=== PATIENT | male | born 1950 | race Caucasian/White ===

== ENCOUNTER 2019-08-22 13:39 | Inpatient (IN) | payer MEDICARE, SELFPAY ==
[2019-08-22] VITALS (9 sets, daily range): BP systolic 102–131; BP diastolic 68–82; PULSE 62–79; RESP 16–19; TEMP 36.6; O2SAT 96–100; BMI 26.0; BMI 24.8
--- NOTE | 2019-08-22 14:03 | RAD_ITS ---
STUDY: X-RAY CHEST REASON FOR EXAM: Male, 69 years old. SOB, HX STEMI, CVA TECHNIQUE: Single AP portable view of the chest. COMPARISON: None. FINDINGS: EKG leads project over the chest. The lungs are clear and expanded. There is no demonstrated pleural abnormality. Normal size heart. Normal mediastinum and maría elena. Normal visualized pulmonary arteries. Normal visualized aortic arch and descending thoracic aorta. Normal visualized thoracic spine. Normal visualized ribs, clavicles, and shoulders. There is no demonstrated abnormality of the visualized soft tissue structures of the upper abdomen. RAD/Chest 1 View (Portable) IMPRESSION: Nonacute portable x-ray examination of the chest. Electronically Signed: Storm Russell MD (Brooks) at 14:45 EST , Service support ,
--- NOTE | 2019-08-22 14:03 | EKG12_ITS ---
Test Reason : SOB Blood Pressure : / mmHG Vent. Rate : 067 BPM Atrial Rate : 067 BPM P-R Int : 178 ms QRS Dur : 160 ms QT Int : 500 ms P-R-T Axes : 069 043 -46 degrees QTc Int : 528 ms Normal sinus rhythm Right bundle branch block T wave abnormality, consider lateral ischemia Abnormal ECG Confirmed by DANIELLE WEAVER, SAMIR ([id number]), editorial director ANGELIQUE FARIAS ([id number]) on 08/25/2019 8:48:36 AM Referred By: Dora Mena Confirmed By:SAMIR SANTOS MD
--- NOTE | 2019-08-22 14:04 | ED.DCSUM_ITS ---
History of Present Illness Chief Complaint: Shortness of Breath Informant: Patient Onset: Weeks Narrative: Patient presents with family secondary to this of breath. Patient was just discharged from the hospital in [place] yesterday. While there patient had severe congestive heart failure. He went into A. fib RVR. He reportedly threw a clot and have a stroke. He was discharged yesterday and states he felt pretty decent when he went home. Since returning home he has had increased shortness of breath. Family states he is supposed to follow-up with Dr. Bedolla here locally so they came to [place]. Family states he did receive a lot of Lasix while in the hospital, but they had problems with low blood pressure. Family states that in spite of patient having severe CHF and shortness of breath his oxygen saturations remained in the high 90s. He was on nasal cannula essentially for comfort. - Past Medical History (1) Atrial fibrillation Status: Chronic (2) CHF (congestive heart failure) Status: Chronic (3) Hypertension Status: Chronic (4) High cholesterol Status: Chronic (5) Myocardial infarction Status: Chronic (6) Diabetes Status: Chronic (7) CVA (cerebral vascular accident) Status: Chronic Past Medical History - Allergies and Home Meds Allergies/Adverse Reactions: Allergies Sulfa (Sulfonamide Antibiotics) Allergy (Verified 08/22/19 13:41) Other Prior records reviewed: Yes - Reviewed patient's discharge notes from [place]. Lives: With Family Smoking Status: Former smoker Review of Systems General: Denies: Chills, Fever Eyes: Denies: Visual changes - bilaterally ENT: Denies: Bilateral ear pain Cardiovascular: Denies: Chest pain Respiratory: Reports: Dyspnea. Denies: Cough Gastrointestinal: Denies: Abdominal pain, Nausea, Vomiting, Diarrhea Genitourinary: Denies: Dysuria Musculoskeletal: Denies: Swelling Skin: Denies: Rash Neurological: Denies: Headache Hematologic: Denies: Easy bruising Allergy: Denies: Uticaria Physical Exam Vital Signs/Narrative: Vital Signs Temp Pulse Resp BP Pulse Ox 08/22/19 13:40 97.9 F 68 18 131/69 H 97 Inital Vital Signs reviewed: Yes General: Well nourished, Well developed Head: Normocephalic ENT: Moist mucous membranes Neck: Supple Cardiovascular: Regular rate, Regular rhythm Respiratory: No distress, CTA bilaterally Abdomen: Soft, Nontender, Nondistended Extremities: Nontender, No edema Skin: Normal color Neurological: Alert, Oriented x3 Psychological: Normal affect Diagnostic/Tx/Re-eval Impressions Chest X-Ray 08/22/19 14:03 IMPRESSION: Nonacute portable x-ray examination of the chest. Electronically Signed: Storm Russell MD (Brooks) at 14:45 EST , Service support , 08/22/19 14:03 Chest 1 View (Portable) [RAD] Stat Laboratory Results 08/22/19 08/22/19 08/22/19 14:10 14:10 14:10 WBC 6.1 RBC 5.03 Hgb 14.0 Hct 44.1 MCV 87.7 MCH 27.8 MCHC 31.7 L RDW Std Deviation 42.3 RDW Coeff of Helene 13.2 Plt Count 259 MPV 10.0 Immature Gran % (Auto) 0.700 Neut % (Auto) 64.2 Lymph % (Auto) 15.9 L Powell % (Auto) 9.7 Eos % (Auto) 9.0 H Baso % (Auto) 0.5 Absolute Neuts (auto) 3.9 Absolute Lymphs (auto) 0.97 Nucleated RBC % 0 Sodium 139 Potassium 4.3 Chloride 105 Carbon Dioxide 31.0 Anion Gap 3 L BUN 44 H Creatinine 1.85 H Estim Creat Clear Calc 40.70 Est GFR (MDRD) Af Amer 47 L Est GFR (MDRD) Non-Af 39 L BUN/Creatinine Ratio 23.8 H Glucose 283 H Calcium 8.4 L Troponin I < 0.015 B-Natriuretic Peptide 851.9 H - EKG Initial EKG Interpretation: Sinus Rhythm - Sinus rhythm with a right bundle branch block. Lateral T flattening and inversions. - Medical Decision Making Patient was placed on nasal cannula here which helps his dyspneic symptoms. He was not hypoxic. Patient's chest x-ray is unremarkable, however his BNP is still significantly elevated. I was able to review the discharge summary from the physician at [facility]. It appears the patient's EF is only 20% and he was taken off of his Lasix secondary to hypotension. We will give him a small dose of Lasix at this time and speak with hospitalist regarding admission. Patient's family is very uncomfortable with him at home and his fragile state. They are concerned he is not going to make it to his appointment on the . ED Disposition - Plan for ED Patient: Disposition: Acute Care Hospital [facility] Diagnosis: CHF (congestive heart failure)
[2019-08-22 14:16] LABS: Absolute Lymphocyte Count 0.97 X10^3/uL (0.83-4.51); Absolute Neutrophil Count 3.9 X10^3/uL (2.0-7.7); Basophil# 0.03 X10^3/uL; Basophil% 0.5 % (0-1); Eosinophil# 0.55 X10^3/uL; Hematocrit 44.1 % (40-54); Lymphocyte # 0.97 X10^3/ul (4.0); Lymphocyte % 15.9 % (19-41); Mean Corp Hgb Conc 31.7 g/dL (32-36); Mean Corpuscular Hgb 27.8 pg (27.0-32.0); Mean Corpuscular Volume 87.7 fL (80-94); Monocyte# 0.59 X10^3/uL; Monocyte% 9.7 % (0-10); NRBC Flagged by Analyzer 0 % (0-5); Neutrophil # 3.92 X10^3/uL (2.7-7.7); Neutrophil % 64.2 % (47-70); Platelet Count 259 K/mm3 (150-450); RBC Distribution Width CV 13.2 % (11.6-14.6); RBC Distribution Width SD 42.3 fl (35.1-43.9); Red Blood Count 5.03 M/mm3 (4.6-6.2); White Blood Count 6.1 K/mm3 (4.4-11.0)
[2019-08-22 14:34] LABS: Anion Gap 3 (5-15); BUN 44 mg/dL (7-18); BUN/Creat Ratio 23.8 RATIO (10-20); Calcium,Total 8.4 mg/dL (8.5-10.1); Chloride 105 mmol/L (98-107); Creatinine, Serum 1.85 mg/dL (0.70-1.30); EST Glomerular Filtration Rate 39 mL/min (>60); Est Glom Filt Rate - Afr Amer 47 mL/min (>60); Glucose 283 mg/dL (74-106); Potassium 4.3 mmol/L (3.5-5.1); Sodium Level 139 mmol/L (136-145)
[2019-08-22 14:44] LABS: BNP,B-Type NATRIURETIC PEPTIDE 851.9 pg/mL (0-100)
--- NOTE | 2019-08-22 16:40 | HP.PCM_ITS ---
Problem List (1) CHF (congestive heart failure) Status: Chronic (2) Atrial fibrillation Status: Chronic (3) CVA (cerebral vascular accident) Status: Chronic (4) Diabetes Status: Chronic (5) High cholesterol Status: Chronic (6) Hypertension Status: Chronic (7) Myocardial infarction Status: Chronic History of Present Illness Date of Admission: 08/22/19 Chief Complaint: Increased shortness of breath. The patient is a 69 year old M who presents emergency room due to increase shortness of breath. Patient was discharged yesterday from [facility]. Patient reports he has had increased shortness of breath for the past few months and was treated for URI without improvement. He was then admitted to [facility] and found to have new dx CHF with EF 20%, A.Fib with RVR complicated by acute left parietal stroke. Patient was discharged in stable condition yesterday however continues to have shortness of breath. He states he is requiring 3 pillows to remain comfortable while sleeping. Patient has upcoming appointment to establish with Dr. Bedolla 09/01/2019. His other past medical history includes type 2 diabetes mellitus, extensive tobacco use history and hypertension. Past Medical History Past Medical History (Chronic Problems): Chronic Problems Atrial fibrillation (Chronic) CHF (congestive heart failure) (Chronic) Hypertension (Chronic) High cholesterol (Chronic) Myocardial infarction (Chronic) Diabetes (Chronic) CVA (cerebral vascular accident) (Chronic) Allergies Sulfa (Sulfonamide Antibiotics) Allergy (Verified 08/22/19 13:41) Other Home Medications: Ambulatory Orders Medication Instructions Recorded Amiodarone HCl [Cordarone] 200 mg PO BID 08/22/19 Apixaban [Eliquis] 5 mg PO BID 08/22/19 Atorvastatin Calcium 40 mg PO QHS 08/22/19 Carvedilol 6.25 mg PO BID 08/22/19 Losartan Potassium [Cozaar] 25 mg PO DAILY 08/22/19 Metformin HCl 500 mg PO BID 08/22/19 Surgical History: - - Right inguinal repair x2, tonsillectomy. Lives: With Family Smoking Status: Former smoker - 1 pack/day smoker x54 years. Tobacco Use: Cigarettes Alcohol: None Drugs: None - *Family History Maternal History Items: - - related to viral endocarditis. Paternal History Items: - - Cancer- brain, bone, lungs. Review of Systems Constitutional: Denies: Chills, Fever, Weight Change HEENT: Denies: Head Aches, Sinus Congestion, Sinus Drainage Cardiovascular: Denies: Chest Pain, Edema, Light Headedness, Palpitations, Syncope Respiratory: Reports: Shortness of Breath. Denies: Cough, Sputum production, Wh eezing Gastrointestinal: Denies: Abdominal Pain, Nausea, Vomiting Genitourinary: Denies: Dysuria Musculoskeletal: Denies: Joint Pain, Joint Tenderness Skin: Denies: Rash, Wounds Neurological: Denies: Numbness, Tingling, Focal weakness Psychiatric: Denies: Anxiety, Depression, Homicidal Ideations, Suicidal Ideations Hematologic/ Lymphatic: Denies: Easy Bruising, Easy Bleeding VTE Information - Inpt Only VTE Present on Admission: No VTE Mechan Device Prophylaxis: None VTE Pharm Prophylaxis ordered?: Yes - Physical Exam Vitals/I&O's: Vital Signs Temp Pulse Resp BP Pulse Ox 97.9 F 67 18 112/68 99 08/22/19 13:40 08/22/19 16:07 08/22/19 16:07 08/22/19 16:07 08/22/19 16:07 Oxygen Flow Rate (L/min) 2 Oxygen Delivery Method Nasal Cannula Weight: 187 lb Body Mass Index (BMI) 26.0 General: Alert, Oriented x3, Cooperative HEENT: Atraumatic, PERRLA, EOMI, Normocephalic Neck: Supple, No JVD, Negative Carotid Bruits Lungs: Clear to auscultation, Diminished Cardiovascular: Regular rate, Regular Rhythm, Normal S1, Normal S2, Murmur Abdomen: Bowel Sounds Present, Soft, Non Tender, Non-Distended Extremities: No clubbing, No cyanosis, No edema, Capillary Refill Less than 3 Seconds Skin: No rashes, No breakdown Musculoskeletal: No Tenderness to Palpation of Joints or Extremities Neurological: Cranial nerves II-XII grossly intact, Neuro grossly intact Psych/Mental Status: Normal Affect, Appropriate Laboratory Results 08/22/19 14:10: WBC 6.1, RBC 5.03, Hgb 14.0, Hct 44.1, MCV 87.7, MCH 27.8, MCHC 31.7 L, RDW Std Deviation 42.3, RDW Coeff of Helene 13.2, Plt Count 259, MPV 10.0, Immature Gran % (Auto) 0.700, Neut % (Auto) 64.2, Lymph % (Auto) 15.9 L, [place] % (Auto) 9.7, Eos % (Auto) 9.0 H, Baso % (Auto) 0.5, Absolute Neuts (auto) 3.9, Absolute Lymphs (auto) 0.97, Nucleated RBC % 0 08/22/19 14:10: Sodium 139, Potassium 4.3, Chloride 105, Carbon Dioxide 31.0, Anion Gap 3 L, BUN 44 H, Creatinine 1.85 H, Estim Creat Clear Calc 40.70, Est GFR (MDRD) Af Amer 47 L, Est GFR (MDRD) Non-Af 39 L, BUN/Creatinine Ratio 23.8 H , Glucose 283 H, Calcium 8.4 L, Troponin I < 0.015 08/22/19 14:10: B-Natriuretic Peptide 851.9 H Assessment/Plan 1. Systolic CHF/cardiomyopathy with EF 20%- does not appear in acute exacerbation. Lungs clear, CXR unremarkable. Echo at [facility] 08/06 demonstrated EF 20%, moderately enlarged right ventricle, mild to moderate MR and TR. BNP 851. Will begin Lasix 40 mg daily. Consult cardiology. Continue losartan. 2. BRIE-unknown baseline. Suspect secondary to recent contrast as well as diuretic regimen. Trend BMP. 3. 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 4. Type 2 Diabetes Mellitus- hold metformin. Accu-Cheks ACHS with SSI. Check HA1C. 5. Hypertension-recent hypotension. Reduce carvedilol to 3.25mg BID. Continue losartan 25 mg p.o. daily with hold parameters. Continue amiodarone. 6. Hyperlipemia- continue statin. 7. Suspected BRENDA- trending overnight pulse ox. Outpatient followup for PSG. 8. Tobacco dependence-patient reports 1 pack/day smoking history since he was 15 years old. Quit 1 week ago. Nicotine replacement patch if desired. DVT prophylaxis- Eliquis This patient was seen by CHELI Arnett under the supervision of Dr. Mena.
[2019-08-22] MEDS: Furosemide 20 MG/2 ML VIAL IV (16:43)
[2019-08-22 17:51] LABS: Bedside Glucose 197 mg/dL (70-110)
[2019-08-22 18:12] LABS: Hemoglobin A1c 7.4 % (4.2-6.3)
[2019-08-22 18:18] LABS: Magnesium 2.8 mg/dL (1.6-2.6); Thyroid Stim Hormone (TSH) 2.54 uIU/mL (0.358-3.74)
[2019-08-22] MEDS: Insulin Lispro 100 UNIT/ML INSULN.PEN SC (21:38)
[2019-08-22] MEDS: Amiodarone 200 MG Tablet PO (21:39)
[2019-08-22] MEDS: Carvedilol 3.125 MG TABLET PO (21:39)
[2019-08-22] MEDS: APIXABAN 5 MG TABLET PO (21:39)
[2019-08-22 21:40] LABS: Bedside Glucose 252 mg/dL (70-110)
[2019-08-22] MEDS: Atorvastatin Calcium 40 MG Tablet PO (21:42)
[2019-08-23] VITALS (11 sets, daily range): BP systolic 106–123; BP diastolic 65–77; PULSE 66–84; RESP 16; TEMP 36.3–36.7; O2SAT 95–99
[2019-08-23 05:55] LABS: Absolute Lymphocyte Count 1.83 X10^3/uL (0.83-4.51); Basophil# 0.03 X10^3/uL; Basophil% 0.4 % (0-1); Eosinophil# 0.49 X10^3/uL; Hematocrit 44.2 % (40-54); Lymphocyte # 1.83 X10^3/ul (4.0); Lymphocyte % 22.5 % (19-41); Mean Corp Hgb Conc 31.7 g/dL (32-36); Mean Corpuscular Hgb 27.8 pg (27.0-32.0); Mean Corpuscular Volume 87.9 fL (80-94); Mean Platelet Vol. 10.1 fl (6.2-12.0); Monocyte# 0.76 X10^3/uL; Monocyte% 9.4 % (0-10); NRBC Flagged by Analyzer 0 % (0-5); Neutrophil # 4.97 X10^3/uL (2.7-7.7); Neutrophil % 61.2 % (47-70); Platelet Count 248 K/mm3 (150-450); RBC Distribution Width CV 13.2 % (11.6-14.6); RBC Distribution Width SD 42.8 fl (35.1-43.9); Red Blood Count 5.03 M/mm3 (4.6-6.2); White Blood Count 8.1 K/mm3 (4.4-11.0)
--- NOTE | 2019-08-23 05:55 | EKG12_ITS ---
Test Reason : AM EKG Blood Pressure : / mmHG Vent. Rate : 068 BPM Atrial Rate : 068 BPM P-R Int : 174 ms QRS Dur : 156 ms QT Int : 490 ms P-R-T Axes : 054 -55 -27 degrees QTc Int : 521 ms Normal sinus rhythm Left axis deviation Right bundle branch block Abnormal ECG Confirmed by JOSI WEAVER, SELENA ([id number]), purchase request editor DEVIN WALKER ([id number]) on 08/26/2019 11:39:20 AM Referred By: Dora Mena Confirmed By:SELENA PRATER MD
[2019-08-23 06:45] LABS: Bedside Glucose 151 mg/dL (70-110)
[2019-08-23 06:47] LABS: Anion Gap 5 (5-15); BUN 42 mg/dL (7-18); BUN/Creat Ratio 24.9 RATIO (10-20); Calcium,Total 8.2 mg/dL (8.5-10.1); Chloride 109 mmol/L (98-107); Creatinine, Serum 1.69 mg/dL (0.70-1.30); EST Glomerular Filtration Rate 43 mL/min (>60); Est Glom Filt Rate - Afr Amer 52 mL/min (>60); Estimated Creatinine Clearance 44.56 ml/min; Glucose 145 mg/dL (74-106); Potassium 4.2 mmol/L (3.5-5.1); Sodium Level 142 mmol/L (136-145)
--- NOTE | 2019-08-23 08:38 | OT ---
PT REPORTS SOB WITH DAILY ACTIVITIES/AMB AT HOME. ISSUED EC/WS EDU HANDOUT AND VERBALLY EDU PT ON TECHNIQUES. PT VERB UNDERSTANDING.
--- NOTE | 2019-08-23 09:13 | ECHOCS_ITS ---
Reason For Study: DYSPNEA Procedure This was a 2D Doppler, Color Flow transthoracic echocardiogram. The study was technically difficult. Contrast injection was performed. Exam performed portable in patient room. Left Ventricle Moderately dilated left ventricle. The estimated ejection fraction is 15 %. Stage 3 diastolic dysfunction. There is severe global hypokinesis of the left ventricle. Atria The left atrium is mildly enlarged. Normal right atrium. Mitral Valve Normal mitral valve. Mild (1+) eccentric mitral valve insufficiency. Tricuspid Valve Normal tricuspid valve. Mild tricuspid valve insufficiency. Pulmonary artery systolic pressure is 33 mmHg. Aortic Valve Trisinus/trileaflet aortic valve. Pulmonic Valve Normal pulmonic valve. Great Vessels Normal aortic root. The pulmonary artery is normal size. Normal inferior vena cava. Pericardium/Pleural No pericardial effusion. Medication Diluted definity 3.0ml given slow IV push to enhance endocardial definition. MMode/2D Measurements & Calculations LVIDd: 6.1 cm IVSd: 0.81 cm Ao root diam: 3.2 cm LVIDs: 5.3 cm LVPWd: 0.98 cm RVDd: 4.3 cm FS: 13.0 % LAV(MOD-bp): 72.2 ml LA A4 area: 23.8 cm2 LA dimension(2D): 5.0 cm LAV(MOD-bp) Indexed: 36.0 ml/m2 LAV(MOD-sp2): 64.6 ml LAV(MOD-sp4): 81.0 ml RA A4 area: 11.9 cm2 Time Measurements MV dec time: 0.18 sec Doppler Measurements & Calculations MV E max sha: 108.8 cm/sec Med Peak E' Sha: 3.0 cm/sec Ao V2 max: 119.4 cm/sec MV A max sha: 43.5 cm/sec E/E' med: 35.9 Ao max P.7 mmHg MV E/A: 2.5 LV V1 max: 69.4 cm/sec TR max sha: 262.3 cm/sec LV V1 max P.9 mmHg TR max P.4 mmHg Interpretation Summary Moderately dilated left ventricle. The estimated ejection fraction is 15 %. Stage 3 diastolic dysfunction. The left atrium is mildly enlarged. Ordering Physician: Gunnar Bustamante Referring Physician: MUNA SILVERIO Performed By: Leyla Saeed, JOBY, RVT
[2019-08-23] MEDS: APIXABAN 5 MG TABLET PO ×2 (09:14→21:09)
[2019-08-23] MEDS: Losartan Potassium 25 MG Tablet PO (09:14)
[2019-08-23] MEDS: Amiodarone 200 MG Tablet PO ×2 (09:14→21:09)
[2019-08-23] MEDS: Carvedilol 3.125 MG TABLET PO ×2 (09:14→21:09)
[2019-08-23] MEDS: Furosemide 40 MG Tablet PO (09:14)
--- NOTE | 2019-08-23 09:17 | CON.PCM_ITS ---
Reason for Consult Date of Consultation: 08/23/19 Reason for Consultation: Shortness of breath History of Present Illness: The patient is a 69 year old M with a recent medical history consisting of shortness of breath for which he underwent evaluation in an urgent care center over the previous 10 days. He had initially suffered a head cold and a cough productive of whitish phlegm. He went to the clinic was diagnosed with bronchitis and given a Z-Corby which she finished. He continued to be short of breath and went back and was given a nebulizer treatment. However due to the fact that he was getting more orthopneic as well as developing a cough he presented to the emergency room in [facility]. At that time he was noted to be hypertensive with a blood pressure 147/109 mmHg and tachycardic. Troponin was noted to be negative at that time but his natruretic peptide level was elevated. A CTA of the chest which was done demonstrated no evidence of pulmonary embolism and his EKG demonstrated sinus tachycardia with a right bundle branch block and left anterior fascicular block. He was treated with intravenous Lasix. He was admitted with a diagnosis of congestive heart failure, acute kidney injury and diabetes as well as dyslipidemia and a previous history of tobacco abuse. The patient developed slurred speech on day 2 of his admission and also developed atrial fibrillation with a rapid ventricular response rate. He was treated with intravenous Lopressor and a CT scan of the head performed which was unremarkable. An echocardiogram demonstrated severely decreased left ventricular function with an estimated EF of 20%, moderately dilated right ventricle, mitral and tricuspid regurgitation. He was placed on Eliquis and an MRI of his brain done demonstrated an acute left parietal infarct. He also developed orthostatic hypotension and so his Lasix was discontinued. He was also started on amiodarone. He was discharged home but the family was not entirely happy with his overall condition and so made an appointment and he was supposed to see Dr. Bedolla and was on September 01. After being discharged home for a day he decided he was still short of breath and so presented to the hospital here in [place]. He was seen in the emergency room and treated with intravenous Lasix and cardiology was consulted for further evaluation and management. [] Past Medical History Allergies/Adverse Reactions: Allergies Sulfa (Sulfonamide Antibiotics) Allergy (Verified 08/22/19 13:41) Other Home Medications: Ambulatory Orders Medication Instructions Recorded Amiodarone HCl [Cordarone] 200 mg PO BID 08/22/19 Apixaban [Eliquis] 5 mg PO BID 08/22/19 Atorvastatin Calcium 40 mg PO QHS 08/22/19 Carvedilol 6.25 mg PO BID 08/22/19 Losartan Potassium [Cozaar] 25 mg PO DAILY 08/22/19 Metformin HCl 500 mg PO BID 08/22/19 Past Medical History (Chronic Problems): Chronic Problems Atrial fibrillation (Chronic) CHF (congestive heart failure) (Chronic) Hypertension (Chronic) High cholesterol (Chronic) Myocardial infarction (Chronic) Diabetes (Chronic) CVA (cerebral vascular accident) (Chronic) Surgical History: - - Right inguinal repair x2, tonsillectomy. - *Family History Maternal History Items: - - related to viral endocarditis. Paternal History Items: - - Cancer- brain, bone, lungs. Lives: With Family Smoking Status: Former smoker Tobacco Use: Cigarettes Alcohol: None Drugs: None Review of Systems - Review of Systems General: Denies: Fever, Night Sweats, Fatigue HEENT: Denies: Vision Change Cardiovascular: Reports: Shortness of Breath, Shortness of Breath at Rest, Shortness of Breath with Exertion, Orthopnea, Peripheral Edema. Denies: Chest Discomfort, PND, Palpitations, Lightheadedness, Dizziness, Near Syncope, Syncope Respiratory: Denies: Cough, Sputum Production, Hemoptysis Gastrointestinal: Denies: Indigestion, Hematemesis, Hematochezia, Melena Genitourinary: Denies: Dysuria, Hematuria Muscoloskeletal: Denies: Myalgias Skin: Denies: Rash Neurological: Denies: Dizziness Psychiatric: Denies: Anxiety Endocrine: Denies: Unexplained Weight Loss Hematologic/ Lymphatic: Denies: Anemia Subjectve: Pleasant gentleman in no distress Objective: Vital Signs Temp Pulse Resp BP Pulse Ox 97.4 F L 70 16 118/77 97 08/23/19 09:12 08/23/19 09:12 08/23/19 09:12 08/23/19 09:12 08/23/19 09:12 Oxygen Flow Rate (L/min) 2 Oxygen Delivery Method Room Air Weight: 178 lb 9.191 oz Body Mass Index (BMI) 24.8 Intake and Output for Last 24 Hours 08/21/19 08/22/19 08/23/19 23:59 23:59 23:59 Intake Total 440 / 440 Output Total 700 / 700 Balance -260 / -260 General: Awake, Alert, Oriented x 3 HEENT: PERRL, EOMI, Sclera Non Icteric Neck: Supple, Good ROM, No Lymph Node Enlargement Lungs: Diminished Tyler Bases Cardiovascular: Regular Rhythm, Normal S1, Normal S2, No Murmurs, No Rubs, No Gallops Vascular: No Carotid Bruits, Normal Femoral Pulses, Normal Radial Pulses, Normal Dorsalis Pedal Pulse, Normal Posterior Tibial Pulses Abdomen: Bowel Sounds Present, Soft, Non Tender, No HSM, No Organomegaly Extremities: No Cyanosis, No Clubbing, No edema Musculoskeletal: No Erythema Skin: No Rashes Lymphatic: No Lymph Node Enlargement Neurological: No Focal Motor or Sensory Deficit Psych/Mental Status: Appropriate 08/22/19 14:10: WBC 6.1, RBC 5.03, Hgb 14.0, Hct 44.1, MCV 87.7, MCH 27.8, MCHC 31.7 L, Plt Count 259, MPV 10.0, Immature Gran % (Auto) 0.700, Neut % (Auto) 64.2, Lymph % (Auto) 15.9 L, [place] % (Auto) 9.7, Eos % (Auto) 9.0 H, Baso % (Auto) 0.5, Absolute Neuts (auto) 3.9, Nucleated RBC % 0 08/22/19 14:10: Sodium 139, Potassium 4.3, Chloride 105, Carbon Dioxide 31.0, Anion Gap 3 L, BUN 44 H, Creatinine 1.85 H, Est GFR (MDRD) Af Amer 47 L, Est GFR (MDRD) Non-Af 39 L, BUN/Creatinine Ratio 23.8 H, Glucose 283 H, Calcium 8.4 L, Troponin I < 0.015 08/22/19 14:10: B-Natriuretic Peptide 851.9 H 08/22/19 17:45: Magnesium 2.8 H, Troponin I < 0.015 08/22/19 17:45: Hemoglobin A1c 7.4 H 08/22/19 20:34: Troponin I < 0.015 08/23/19 05:30: WBC 8.1, RBC 5.03, Hgb 14.0, Hct 44.2, MCV 87.9, MCH 27.8, MCHC 31.7 L, Plt Count 248, MPV 10.1, Immature Gran % (Auto) 0.500, Neut % (Auto) 61.2, Lymph % (Auto) 22.5, [place] % (Auto) 9.4, Eos % (Auto) 6.0 H, Baso % (Auto) 0.4, Absolute Neuts (auto) 5.0, Nucleated RBC % 0 08/23/19 05:30: Sodium 142, Potassium 4.2, Chloride 109 H, Carbon Dioxide 28.0, Anion Gap 5, BUN 42 H, Creatinine 1.69 H, Est GFR (MDRD) Af Amer 52 L, Est GFR (MDRD) Non-Af 43 L, BUN/Creatinine Ratio 24.9 H, Glucose 145 H, Calcium 8.2 L Rhythm: EKG: Normal sinus rhythm with a right bundle branch block and a rate of 68 bpm ECHO: Stress Test: Cardiac Cath: PCI: CT Surgery: Holter monitor: EPS: PPM: CXR: Chest CT Scan: Assessment/Plan 1. Congestive heart failure-acute with reduced left ventricular ejection fraction * Patient presents with shortness of breath and is noted to have clinical findings suggestive of congestive heart failure with rales, elevated natruretic peptide, chest x-ray findings. At this particular time he appears to be doing much better. * Recommendation with to continue him on the ARB and monitor his electrolytes * Continue beta-topher * Will diurese with Lasix x1 IV today and then continue with oral Lasix * Reassess his left ventricular function and then depending on the findings further recommendations will be made. My suspicion is that he can follow-up as an outpatient. * The etiology of his congestive heart failure which may be secondary to hypertensive heart disease, paroxysmal atrial fibrillation, and/or coronary artery disease will need to be evaluated later on. * 2. Hypertension * His blood pressure appears to be better controlled at this particular time. It was noted to be elevated when he presented in the hospital. The plan will be to continue him on the current medications with no major changes. * 3. Paroxysmal atrial fibrillation * Patient presented with sinus rhythm and apparently had a paroxysm of atrial fibrillation which was documented. * At this time the recommendation to be to continue him on the anticoagulation with Eliquis uninterrupted preferably. * Will reevaluate his echocardiogram to make sure he does not have any left ventricular thrombus. * He will also continue with the antiarrhythmic with amiodarone 200 mg twice daily for 1 more week and then 200 mg daily 4. Recent parietal cerebrovascular accident * Continue to monitor carefully for any recurrence * When he is eventually discharged as an outpatient he will follow-up with his previously scheduled visit to see the heart group physician. Thank you for allowing me to participate in the care of your patient. Please don't hesitate to call if any issues arise
[2019-08-23] MEDS: Furosemide 40 MG/4 ML Vial IV (10:10)
[2019-08-23] MEDS: 0.9% Saline Lock 10 ML Syringe IV ×2 (10:10→21:10)
[2019-08-23] MEDS: Insulin Lispro 100 UNIT/ML INSULN.PEN SC ×2 (11:12→16:48)
[2019-08-23 11:26] LABS: Bedside Glucose 244 mg/dL (70-110)
--- NOTE | 2019-08-23 12:02 | PN_ITS ---
Subjective: Patient seen and examined. Reports he did not sleep well last night. He states he felt short of breath every time he fell asleep. Today feels improved although fatigue. - Physical Exam Vitals/I&O's: Vital Signs Temp Pulse Resp BP Pulse Ox 97.4 F L 79 16 118/77 97 08/23/19 09:12 08/23/19 10:59 08/23/19 09:12 08/23/19 09:12 08/23/19 09:12 Oxygen Flow Rate (L/min) 2 Oxygen Delivery Method Room Air Weight: 178 lb 9.191 oz Body Mass Index (BMI) 24.8 Intake and Output for Last 24 Hours 08/21/19 08/22/19 08/23/19 23:59 23:59 23:59 Intake Total 440 / 440 Output Total 700 / 700 Balance -260 / -260 General: Alert, Oriented x3, Cooperative HEENT: Atraumatic, PERRLA, EOMI, Normocephalic Neck: Supple, No JVD, Negative Carotid Bruits Lungs: Clear to auscultation, Normal air movement Cardiovascular: Regular rate, Regular Rhythm, Normal S1, Normal S2 Abdomen: Bowel Sounds Present, Soft, Non Tender Extremities: No clubbing, No cyanosis, No edema, Capillary Refill Less than 3 Seconds Skin: No rashes, No breakdown Musculoskeletal: No Tenderness to Palpation of Joints or Extremities Neurological: Cranial nerves II-XII grossly intact, Neuro grossly intact Psych/Mental Status: Normal Affect, Appropriate Laboratory Results 08/22/19 14:10: WBC 6.1, RBC 5.03, Hgb 14.0, Hct 44.1, MCV 87.7, MCH 27.8, MCHC 31.7 L, RDW Std Deviation 42.3, RDW Coeff of Helene 13.2, Plt Count 259, MPV 10.0, Immature Gran % (Auto) 0.700, Neut % (Auto) 64.2, Lymph % (Auto) 15.9 L, [place] % (Auto) 9.7, Eos % (Auto) 9.0 H, Baso % (Auto) 0.5, Absolute Neuts (auto) 3.9, Absolute Lymphs (auto) 0.97, Nucleated RBC % 0 08/22/19 14:10: Sodium 139, Potassium 4.3, Chloride 105, Carbon Dioxide 31.0, Anion Gap 3 L, BUN 44 H, Creatinine 1.85 H, Estim Creat Clear Calc 40.70, Est GFR (MDRD) Af Amer 47 L, Est GFR (MDRD) Non-Af 39 L, BUN/Creatinine Ratio 23.8 H , Glucose 283 H, Calcium 8.4 L, Troponin I < 0.015 08/22/19 14:10: B-Natriuretic Peptide 851.9 H 08/22/19 17:44: POC Glucose 197 H 08/22/19 17:45: Magnesium 2.8 H, Troponin I < 0.015, TSH 2.54 08/22/19 17:45: Hemoglobin A1c 7.4 H 08/22/19 20:34: Troponin I < 0.015 08/22/19 21:33: POC Glucose 252 H 08/23/19 05:30: WBC 8.1, RBC 5.03, Hgb 14.0, Hct 44.2, MCV 87.9, MCH 27.8, MCHC 31.7 L, RDW Std Deviation 42.8, RDW Coeff of Helene 13.2, Plt Count 248, MPV 10.1, Immature Gran % (Auto) 0.500, Neut % (Auto) 61.2, Lymph % (Auto) 22.5, [place] % (Auto) 9.4, Eos % (Auto) 6.0 H, Baso % (Auto) 0.4, Absolute Neuts (auto) 5.0, Absolute Lymphs (auto) 1.83, Nucleated RBC % 0 08/23/19 05:30: Sodium 142, Potassium 4.2, Chloride 109 H, Carbon Dioxide 28.0, Anion Gap 5, BUN 42 H, Creatinine 1.69 H, Estim Creat Clear Calc 44.56, Est GFR (MDRD) Af Amer 52 L, Est GFR (MDRD) Non-Af 43 L, BUN/Creatinine Ratio 24.9 H, Glucose 145 H, Calcium 8.2 L 08/23/19 06:40: POC Glucose 151 H 08/23/19 11:10: POC Glucose 244 H Current Medications Acetaminophen (Tylenol) 650 mg PO Q6H PRN PRN PRN Reason: Non-cardiac pain (-05/28) Al Hydroxide/Mg Hydroxide (Mylanta Ii) 15 - 30 ml PO Q4H PRN PRN PRN Reason: INDIGESTION Albuterol Sulfate (Ventolin Aerosols) 2.5 mg INHALATION Q2H PRN PRN PRN Reason: dyspnea, wheezing Amiodarone HCl (Cordarone) 200 mg PO BID [facility] Last Admin: 08/23/19 09:14 Dose: 200 mg Documented by: Apixaban (Eliquis) 5 mg PO BID [facility] Last Admin: 08/23/19 09:14 Dose: 5 mg Documented by: Atorvastatin Calcium (Lipitor) 40 mg PO QHS [facility] Last Admin: 08/22/19 21:42 Dose: 40 mg Documented by: Carvedilol (Coreg) 3.125 mg PO BID [facility] Last Admin: 08/23/19 09:14 Dose: 3.125 mg Documented by: Glucagon () 1 mg IM .X1 PRN PRN Reason: Hypoglycemia Guaifenesin (Robitussin) 20 ml PO Q4H PRN PRN PRN Reason: COUGH Hydralazine HCl (Apresoline Iv) 10 mg IV Q4H PRN PRN PRN Reason: SBP > 160 Dextrose (Dextrose 10%-Water) 250 mls @ 999 mls/hr IV .Q16M PRN; Protocol PRN Reason: HYPOGLYCEMIA Sodium Chloride () 500 mls @ 15 mls/hr IV PRN PRN PRN Reason: Blood Transfusion Sodium Chloride () 250 mls @ 15 mls/hr IV .[id number] PRN PRN Reason: Saline Flush Insulin Human Lispro (Humalog Kwikpen (Bkc)) 0 unit SC ACHS [facility]; Protocol Last Admin: 08/23/19 11:12 Dose: 3 unit Documented by: Losartan Potassium (Cozaar) 25 mg PO DAILY [facility] Last Admin: 08/23/19 09:14 Dose: 25 mg Documented by: Magnesium Hydroxide (Milk Of Magnesia) 30 ml PO DAILY PRN PRN Reason: Constipation Melatonin (Melatonin) 3 mg PO QHS PRN PRN PRN Reason: INSOMNIA Morphine Sulfate () 1 - 2 mg IV Q4H PRN PRN PRN Reason: Pain Score 1-10/10 Nitroglycerin (Nitrostat) 0.4 mg SUBLINGUAL Q5M PRN PRN Reason: CARDIAC/CHEST PAIN Ondansetron HCl (Zofran) 4 mg IV Q8H PRN PRN PRN Reason: NAUSEA/VOMITING Psyllium Hydrophilic Mucilloid (Metamucil) 1 packet PO DAILY PRN PRN PRN Reason: Constipation Senna/Docusate Sodium (Senokot-S, Myriam-Colace) 2 tablet PO BID PRN PRN PRN Reason: Constipation Sodium Chloride () 10 - 40 ml IV UD PRN PRN Reason: SALINE FLUSH Last Admin: 08/23/19 10:10 Dose: 10 ml Documented by: Throat Lozenges (Cepacol Sore Throat Lozenge) 1 lozenge MUCOUS MEM Q2H PRN PRN PRN Reason: Sore Throat/Cough Medical Necessity - Tobacco Use Smoking Status: Former smoker Tobacco Use: Cigarettes Assessment/Plan 1. Systolic CHF/cardiomyopathy with EF 20%- does not appear in acute exacerbation. Lungs clear, CXR unremarkable. Echo at [facility] 08/06 demonstrated EF 20%, moderately enlarged right ventricle, mild to moderate MR and TR. BNP 851. Continue Lasix 40 mg daily. Cardiology consulted. Plan for echo in a.m. Continue losartan, beta-topher. 2. Ongoing BRIE versus CKD stage III-unknown baseline however per patient creatinine at [facility] 1.8. Creatinine improved today to 1.6. Trend BMP. 3. 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 4. Type 2 Diabetes Mellitus- hold metformin. Accu-Cheks ACHS with SSI. Hemoglobin A1c 7.4%. 5. Hypertension-recent hypotension. Reduce carvedilol to 3.25mg BID. Continue losartan 25 mg p.o. daily with hold parameters. Continue amiodarone. 6. Hyperlipemia- continue statin. 7. Suspected BRENDA- trending overnight pulse ox. Outpatient followup for PSG. 8. Tobacco dependence-patient reports 1 pack/day smoking history since he was 15 years old. Quit 1 week ago. Nicotine replacement patch if desired. DVT prophylaxis- Eliquis This patient was seen by CHELI Arnett under the supervision of Dr. Rose.
[2019-08-23 16:56] LABS: Bedside Glucose 237 mg/dL (70-110)
[2019-08-23] MEDS: Atorvastatin Calcium 40 MG Tablet PO (21:09)
[2019-08-23 21:15] LABS: Bedside Glucose 154 mg/dL (70-110)
[2019-08-24 02:53] VITALS: PULSE 68
[2019-08-24 03:25] VITALS: BP 135/82; PULSE 69; RESP 16; TEMP 37; O2SAT 96
[2019-08-24 06:40] LABS: Bedside Glucose 143 mg/dL (70-110)
[2019-08-24 06:41] LABS: Anion Gap 3 (5-15); BUN 43 mg/dL (7-18); BUN/Creat Ratio 21.5 RATIO (10-20); Calcium,Total 8.6 mg/dL (8.5-10.1); Chloride 105 mmol/L (98-107); EST Glomerular Filtration Rate 36 mL/min (>60); Est Glom Filt Rate - Afr Amer 43 mL/min (>60); Estimated Creatinine Clearance 37.65 ml/min; Glucose 149 mg/dL (74-106); Potassium 3.9 mmol/L (3.5-5.1); Sodium Level 140 mmol/L (136-145)
[2019-08-24 06:44] VITALS: PULSE 65
[2019-08-24 07:24] VITALS: O2SAT 95
--- NOTE | 2019-08-24 07:24 | PN.CARD_ITS ---
Subjectve: Patient seen and evaluated. Doing much better today Objective: Vital Signs Temp Pulse Resp BP Pulse Ox 98.6 F 65 16 135/82 H 96 08/24/19 03:25 08/24/19 06:44 08/24/19 03:25 08/24/19 03:25 08/24/19 03:25 Oxygen Flow Rate (L/min) 2 Oxygen Delivery Method Room Air Weight: 173 lb 1.006 oz Body Mass Index (BMI) 24.8 Intake and Output for Last 24 Hours 08/22/19 08/23/19 08/24/19 23:59 23:59 23:59 Intake Total 1340 / 1570 230 / 230 Output Total 2300 / 2700 700 / 700 Balance -960 / -1130 -470 / -470 General: Awake, Alert, Oriented x 3 HEENT: PERRL, EOMI, Sclera Non Icteric Neck: Supple, Good ROM, No Lymph Node Enlargement Lungs: Clear to auscultation Cardiovascular: Regular Rhythm, Normal S1, Normal S2, No Murmurs, No Rubs, No Gallops Vascular: No Carotid Bruits, Normal Femoral Pulses, Normal Radial Pulses, Normal Dorsalis Pedal Pulse, Normal Posterior Tibial Pulses Abdomen: Bowel Sounds Present, Soft, Non Tender, No HSM, No Organomegaly Extremities: No Cyanosis, No Clubbing, No edema Musculoskeletal: No Erythema Skin: No Rashes Lymphatic: No Lymph Node Enlargement Neurological: No Focal Motor or Sensory Deficit Psych/Mental Status: Appropriate 08/24/19 05:35: Sodium 140, Potassium 3.9, Chloride 105, Carbon Dioxide 32.0, Anion Gap 3 L, BUN 43 H, Creatinine 2.00 H, Est GFR (MDRD) Af Amer 43 L, Est GFR (MDRD) Non-Af 36 L, BUN/Creatinine Ratio 21.5 H, Glucose 149 H, Calcium 8.6 Rhythm: EKG: ECHO: Stress Test: Cardiac Cath: PCI: CT Surgery: Holter monitor: EPS: PPM: CXR: Chest CT Scan: Medical Necessity - Tobacco Use Smoking Status: Former smoker Tobacco Use: Cigarettes Assessment/Plan 1. Congestive heart failure-acute with reduced left ventricular ejection fraction * Patient presents with shortness of breath and is noted to have clinical findings suggestive of congestive heart failure with rales, elevated natruretic peptide, chest x-ray findings. At this particular time he appears to be doing much better. * Recommendation with to continue him on the ARB and monitor his electrolytes * Continue beta-topher * We will switch to oral Lasix today * Reassess his left ventricular function and then depending on the findings further recommendations will be made. My suspicion is that he can follow-up as an outpatient. * The etiology of his congestive heart failure which may be secondary to hypertensive heart disease, paroxysmal atrial fibrillation, and/or coronary artery disease will need to be evaluated later on. * 2. Hypertension * His blood pressure appears to be better controlled at this particular time. It was noted to be elevated when he presented in the hospital. The plan will be to continue him on the current medications with no major changes. * 3. Paroxysmal atrial fibrillation * Patient presented with sinus rhythm and apparently had a paroxysm of atrial fibrillation which was documented. * At this time the recommendation to be to continue him on the anticoagulation with Eliquis uninterrupted preferably. * Will reevaluate his echocardiogram to make sure he does not have any left ventricular thrombus. * He will also continue with the antiarrhythmic with amiodarone 200 mg twice daily for 1 more week and then 200 mg daily 4. Recent parietal cerebrovascular accident * Continue to monitor carefully for any recurrence * * Overall he appears to be doing much better today. He can probably be discharged later today and followed up as an outpatient where he will follow-up with his previously scheduled visit to see the heart group physician. Thank you for allowing me to participate in the care of your patient. Please don't hesitate to call if any issues arise
[2019-08-24 09:23] VITALS: BP 132/79; PULSE 69; RESP 16; TEMP 36.3; O2SAT 96
--- NOTE | 2019-08-24 10:10 | CASEMGMT ---
RN CALEB ANESTHESIOLOGIST PHYSICIAN CALEB to room for iinitial transition planning/care coordination assessment. TAMRA ELLIS introduced self and role at [facility]. Pt sleeping. , Mihaela, @ bedside and voices understanding and consents to assessment at this time. Care providers, pharmacy, and demographics verified at this time. PCP: Dr Danna Alcantar Specialists: Dr Bedolla--cardiology. Has an appt on Sep 01 (new patient) Preferred Pharmacy: [facility] Insurance: [employer] [facility] Prescription Benefit: Yes Living Will/HPOA: states pt does not have LW or HCPOA . interested in more information for pt-Provided information on advanced directives and given Social Service rac card with number to call if chooses in the future to utilize [facility] social work for advanced directive completion. Made aware if pt would like to talk with SW to complete paperwork during this admission, to ask for SW. LNOK: Mihaela Living Arrangements: Lives in ranch-style home w/basement with his . Independent Transportation: Pt/. DME: Has a tub shower with chair and handles. Ambulates independently. denies need for further DME at this time. HHC/SNF: No history of either. No needs identified. denies having any issues/concerns with pt going home @ discharge. CM to follow for any discharge planning/needs. Advised to ask for CM if any further questions/concerns/needs arise. voices understanding. PLAN: Home Maldonado ARANDA RN, CM
[2019-08-24] MEDS: Carvedilol 3.125 MG TABLET PO (10:56)
[2019-08-24] MEDS: Losartan Potassium 25 MG Tablet PO (10:56)
[2019-08-24] MEDS: Amiodarone 200 MG Tablet PO (10:56)
[2019-08-24] MEDS: APIXABAN 5 MG TABLET PO (10:56)
[2019-08-24 11:06] LABS: Bedside Glucose 289 mg/dL (70-110)
--- NOTE | 2019-08-24 11:12 | DCINST_ITS ---
- Discharge Diagnoses Current Active Problems: Current Active and Chronic Problems CHF (congestive heart failure) (Chronic) You will use the following diet at home:: Cardiac, Fluid restricted (specify 2000 mls, 1500 mls) - 1500 cc fluid restriction. 2 g sodium restriction. Discharge Activity: Return to Normal Activity Call your doctor if you observe: Shortness of breath, Dizziness, Fainting spells, Chest pain Additional Instructions: Weigh yourself daily, report greater than 2 pound weight gain to cardiology. You will continue amiodarone 200 mg twice daily for 7 days and then transition to amiodarone 200 mg daily only. You will need a repeat BMP in 3-5 days to check kidney function which can be competed by PCP. Allergies/Adverse Reactions: Allergies Sulfa (Sulfonamide Antibiotics) Allergy (Verified 08/22/19 13:41) Other Medications to take at Discharge Apixaban [Eliquis] 5 mg PO BID 08/22/19 Atorvastatin Calcium 40 mg PO QHS 08/22/19 Losartan Potassium [Cozaar] 25 mg PO DAILY 08/22/19 Metformin HCl 500 mg PO BID 08/22/19 Amiodarone HCl [Cordarone] 200 mg PO BID #0 08/24/19 Carvedilol [Coreg (Beta Navya)] 3.125 mg PO BID #60 tab 08/24/19 Furosemide [Lasix] 60 mg PO DAILY #90 tab 08/24/19 The following prescriptions were given: Carvedilol [Coreg (Beta Navya)] 3.125 mg PO BID #60 tab Transmission Status: Pending to [id number] Furosemide [Lasix] 60 mg PO DAILY #90 tab Transmission Status: Pending to [id number] Primary Care Physician: Danna Alcantar DO [Primary Care Provider] - Please follow up with your Primary Care Physician in: 3-5 Days Test Results: Test results from this visit will be discussed in further detail at your follow- up appointment, if applicable. Please Follow Up With: Leon Bedolla MD When: As scheduled, 09/01/19 Please Follow Up With: Casey Rodriguez DO - Pulmonary Medicine When: Call to establish for COPD testing and sleep apnea evaluation. [phone] Proposed Discharge Date: 08/24/19
--- NOTE | 2019-08-24 11:19 | DS.PCM_ITS ---
<Alva Galarza - Last Filed: 08/24/19 11:39> Discharge Date and Diagnosis Date of Admission: 08/22/19 Date of Discharge: 08/24/19 - Primary Discharge Diagnosis 1. Systolic CHF/cardiomyopathy with EF 20% 2. BRIE on suspected CKD stage III 3. Recent diagnosis paroxysmal A.Fib complicated by left parietal CVA 4. Type 2 Diabetes Mellitus 5. Hypertension 6. Hyperlipemia 7. Suspected BRENDA 8. Tobacco dependence - Secondary Discharge Diagnosis Chronic Problems Atrial fibrillation (Chronic) CHF (congestive heart failure) (Chronic) Hypertension (Chronic) High cholesterol (Chronic) Myocardial infarction (Chronic) Diabetes (Chronic) CVA (cerebral vascular accident) (Chronic) Hospital Course and Treatment Imaging Results: Diagnostic Data Chest X-Ray 08/22/19 14:03 IMPRESSION: Nonacute portable x-ray examination of the chest. Electronically Signed: Storm Russell MD ([place]) at 14:45 EST , Service support , Dr. Bustamante-Cardiology Operations: None Procedures: 2-D Echocardiogram Summary of Care Provided: The patient is a 69 year old M admitted 08/22/19 due to increased shortness of breath. 1. Systolic CHF/cardiomyopathy with EF 20%- did not appear in acute exacerbation on admission. Lungs clear, CXR unremarkable. Echo at [facility] 08/06 demonstrated EF 20%, moderately enlarged right ventricle, mild to moderate MR and TR. BNP 851. Cardiology consulted during admission. Patient has upcoming follow-up with Dr. Bedolla 09/01/2019. Continue home losartan 25 mg daily, carvedilol regimen reduced to 3.125 mg twice daily. Initiated on Lasix 60 mg daily. He will need repeat BMP by primary care provider in 3 to 5 days to assess kidney function. Echocardiogram repeated during admission to assess for left ventricular thrombus, this will be reviewed prior to discharge. Follow-up with primary care physician in 3 to 5 days. 2. BRIE on suspected CKD stage III-unknown baseline however per patient creatinine at [facility] 1.8. Creatinine initially improved to 1.6 however following IV Lasix increased to 2.0. IV Lasix discontinued and patient will resume oral Lasix at discharge. Repeat BMP in 3 to 5 days as noted above. Recommend referral by primary care provider to nephrology for routine follow-up. 3. Recent diagnosis paroxysmal A.Fib complicated by left parietal CVA-continue amiodarone, carvedilol, Eliquis, statin. Patient will continue amiodarone 200 mg twice daily for 1 week and then reduce amiodarone to 200 mg daily. Records from recent [facility] hospitalization reviewed and there was no found imaging of neck. Recommend carotid duplex ultrasound as outpatient which can be arranged by primary care provider. 4. Type 2 Diabetes Mellitus- Hemoglobin A1c 7.4%. Continue home metformin regimen however if kidney function declines, this may need discontinued and treated with alternative agent. 5. Hypertension-Carvedilol decreased to 3.25mg BID given previous hypotension and addition of Lasix. Continue losartan 25 mg p.o. daily. 6. Hyperlipemia- continue statin. 7. Suspected BRENDA- trending overnight pulse ox report pending at discharge. Recommend outpatient sleep study which can be arranged by primary care provider, also referred to pulmonary medicine. 8. Tobacco dependence-patient reports 1 pack/day smoking history since he was 15 years old. Quit 1 week ago. Recommend continued cessation. Referred to pulmonary medicine of [place] at discharge for PFTs given no history of formal evaluation for COPD with extensive smoking history. Follow-up with pulmonary medicine in 1 to 2 weeks to establish. General: Alert, Oriented x3, Cooperative HEENT: Atraumatic, PERRLA, EOMI, Normocephalic Neck: Supple, No JVD, Negative Carotid Bruits Lungs: Clear to auscultation, Normal air movement Cardiovascular: Regular rate, Regular Rhythm, Normal S1, Normal S2 Abdomen: Bowel Sounds Present, Soft, Non Tender Extremities: No clubbing, No cyanosis, No edema, Capillary Refill Less than 3 Seconds Skin: No rashes, No breakdown Musculoskeletal: No Tenderness to Palpation of Joints or Extremities Neurological: Cranial nerves II-XII grossly intact, Neuro grossly intact Psych/Mental Status: Normal Affect, Appropriate Patient seen and examined prior to discharge. Physical assessment as noted above. Patient is stable for discharge with follow up recommendations as noted above. This patient was seen by CHELI Arnett under the supervision of Dr. Pena. - Physical Exam Vitals/I&O's: Vital Signs Temp Pulse Resp BP Pulse Ox 97.4 F L 69 16 132/79 H 96 08/24/19 09:23 08/24/19 09:23 08/24/19 09:23 08/24/19 09:23 08/24/19 09:23 Oxygen Flow Rate (L/min) 2 Oxygen Delivery Method Room Air Weight: 173 lb 1.006 oz Body Mass Index (BMI) 24.8 Intake and Output for Last 24 Hours 08/22/19 08/23/19 08/24/19 23:59 23:59 23:59 Intake Total 1340 / 1570 230 / 230 Output Total 2300 / 2700 700 / 700 Balance -960 / -1130 -470 / -470 Laboratory Results 08/23/19 11:10: POC Glucose 244 H 08/23/19 16:43: POC Glucose 237 H 08/23/19 21:07: POC Glucose 154 H 08/24/19 05:35: Sodium 140, Potassium 3.9, Chloride 105, Carbon Dioxide 32.0, Anion Gap 3 L, BUN 43 H, Creatinine 2.00 H, Estim Creat Clear Calc 37.65, Est GFR (MDRD) Af Amer 43 L, Est GFR (MDRD) Non-Af 36 L, BUN/Creatinine Ratio 21.5 H , Glucose 149 H, Calcium 8.6 08/24/19 06:33: POC Glucose 143 H 08/24/19 11:00: POC Glucose 289 H Current Medications Acetaminophen (Tylenol) 650 mg PO Q6H PRN PRN PRN Reason: Non-cardiac pain (-05/28) Al Hydroxide/Mg Hydroxide (Mylanta Ii) 15 - 30 ml PO Q4H PRN PRN PRN Reason: INDIGESTION Albuterol Sulfate (Ventolin Aerosols) 2.5 mg INHALATION Q2H PRN PRN PRN Reason: dyspnea, wheezing Amiodarone HCl (Cordarone) 200 mg PO BID [facility] Last Admin: 08/24/19 10:56 Dose: 200 mg Documented by: Apixaban (Eliquis) 5 mg PO BID [facility] Last Admin: 08/24/19 10:56 Dose: 5 mg Documented by: Atorvastatin Calcium (Lipitor) 40 mg PO QHS [facility] Last Admin: 08/23/19 21:09 Dose: 40 mg Documented by: Carvedilol (Coreg) 3.125 mg PO BID [facility] Last Admin: 08/24/19 10:56 Dose: 3.125 mg Documented by: Clonazepam (Klonopin) 0.5 mg PO QHS [facility] Last Admin: 08/23/19 21:10 Dose: Not Given Documented by: Glucagon () 1 mg IM .X1 PRN PRN Reason: Hypoglycemia Guaifenesin (Robitussin) 20 ml PO Q4H PRN PRN PRN Reason: COUGH Hydralazine HCl (Apresoline Iv) 10 mg IV Q4H PRN PRN PRN Reason: SBP > 160 Dextrose (Dextrose 10%-Water) 250 mls @ 999 mls/hr IV .Q16M PRN; Protocol PRN Reason: HYPOGLYCEMIA Sodium Chloride () 500 mls @ 15 mls/hr IV PRN PRN PRN Reason: Blood Transfusion Sodium Chloride () 250 mls @ 15 mls/hr IV .[id number] PRN PRN Reason: Saline Flush Insulin Human Lispro (Humalog Kwikpen (Bkc)) 0 unit SC ACHS [facility]; Protocol Last Admin: 08/24/19 06:34 Dose: Not Given Documented by: Losartan Potassium (Cozaar) 25 mg PO DAILY [facility] Last Admin: 08/24/19 10:56 Dose: 25 mg Documented by: Magnesium Hydroxide (Milk Of Magnesia) 30 ml PO DAILY PRN PRN Reason: Constipation Melatonin (Melatonin) 3 mg PO QHS PRN PRN PRN Reason: INSOMNIA Morphine Sulfate () 1 - 2 mg IV Q4H PRN PRN PRN Reason: Pain Score 1-10/10 Nitroglycerin (Nitrostat) 0.4 mg SUBLINGUAL Q5M PRN PRN Reason: CARDIAC/CHEST PAIN Ondansetron HCl (Zofran) 4 mg IV Q8H PRN PRN PRN Reason: NAUSEA/VOMITING Psyllium Hydrophilic Mucilloid (Metamucil) 1 packet PO DAILY PRN PRN PRN Reason: Constipation Senna/Docusate Sodium (Senokot-S, Myriam-Colace) 2 tablet PO BID PRN PRN PRN Reason: Constipation Sodium Chloride () 10 - 40 ml IV UD PRN PRN Reason: SALINE FLUSH Last Admin: 08/23/19 21:10 Dose: 10 ml Documented by: Throat Lozenges (Cepacol Sore Throat Lozenge) 1 lozenge MUCOUS MEM Q2H PRN PRN PRN Reason: Sore Throat/Cough Discharge Diet: 8 Cup Fluid Restriciton, 2000 mg Sodium Diet Discharge Activity: Return to Normal Activity Call your doctor if you observe: Shortness of breath, Dizziness, Fainting spells, Chest pain Home Medications: Medications to take at Discharge Apixaban [Eliquis] 5 mg PO BID 08/22/19 Atorvastatin Calcium 40 mg PO QHS 08/22/19 Losartan Potassium [Cozaar] 25 mg PO DAILY 08/22/19 Metformin HCl 500 mg PO BID 08/22/19 Amiodarone HCl [Cordarone] 200 mg PO BID #0 08/24/19 Carvedilol [Coreg (Beta Navya)] 3.125 mg PO BID #60 tab 08/24/19 Furosemide [Lasix] 60 mg PO DAILY #90 tab 08/24/19 Following Prescrptions Were Given to Patient: Carvedilol [Coreg (Beta Navya)] 3.125 mg PO BID #60 tab Transmission Status: Received by [id number] Furosemide [Lasix] 60 mg PO DAILY #90 tab Transmission Status: Received by [id number] Primary Care Physician: Danna Alcantar DO [Primary Care Provider] - Please follow up with your Primary Care Physician in: 3-5 Days Please Follow Up With: Leon Bedolla MD When: As scheduled, 09/01/19 Please Follow Up With: Casey Rodriguez DO - Pulmonary Medicine When: Call to establish for COPD testing and sleep apnea evaluation. [phone] Disposition: Home Minutes spent on discharge:: 35 Patient Condition:: Stable Medical Necessity - Tobacco Use Smoking Status: Former smoker Tobacco Use: Cigarettes Meaningful Use Info Meaningful Use Diagnoses (Choose all that apply): None applicable <Justen Pena E - Last Filed: 08/24/19 12:10> Discharge Date and Diagnosis - Secondary Discharge Diagnosis Chronic Problems Atrial fibrillation (Chronic) CHF (congestive heart failure) (Chronic) Hypertension (Chronic) High cholesterol (Chronic) Myocardial infarction (Chronic) Diabetes (Chronic) CVA (cerebral vascular accident) (Chronic) Hospital Course and Treatment Summary of Care Provided: Hospitalist note: Discharge summary above reviewed and I concur with above discharge and treatment plan. Patient was admitted for worsening shortness of breath, found to have acute systolic CHF. He was treated with IV Lasix for diuresis and also with beta-blockers and losartan. He was found to have ejection fraction of 20% on echocardiogram that was done recently at [facility]. Risks, patient symptoms improved and he remained on room air. His vital signs were stable. His creatinine has been going up with IV diuresis. On admission, creatinine was 1.85, upon discharge it was 2 mg/dL. Unknown baseline kidney function. Probably patient has history of chronic kidney disease. His EKG revealed no acute ischemic changes. Troponin was negative. Vital signs remained stable and he remained stable on room air. Patient discharged home in a stable condition, discharged on Lasix 60 mg p.o. daily, continued on Coreg and losartan as well as amiodarone and Eliquis, recommended repeat BMP in 3 to 5 days, follow-up with PCP in 3 to 5 days, follow-up with cardiology as scheduled. - Physical Exam General: Alert, Oriented x3, Cooperative, No apparent distress. HEENT: Atraumatic, PERRLA, EOMI. Neck: Supple, No JVD, Negative Carotid Bruits, Trachea Midline, Thyroid Normal. Lungs: Diminished breath sounds bilateral, otherwise clear, No rhonchi, No wheeze, No rales. Cardiovascular: Regular rate, Regular Rhythm, Normal S1, Normal S2, PMI Normal. Abdomen: Bowel Sounds Present, Soft, Non Tender, Non-Distended, No Hepato- splenomegaly. Extremities: No clubbing, No cyanosis, No edema Skin: No rashes, No breakdown Neurological: Cranial nerves are intact, neuro grossly intact Vital Signs stable. This note was generated with [employer] dictation software. It may contain incorrect words, spelling, and punctuation that were not noted in checking the note before signing. - Physical Exam Vitals/I&O's: Vital Signs Temp Pulse Resp BP Pulse Ox 97.4 F L 71 16 132/79 H 96 08/24/19 09:23 08/24/19 11:29 08/24/19 09:23 08/24/19 09:23 08/24/19 09:23 Oxygen Flow Rate (L/min) 2 Oxygen Delivery Method Room Air Weight: 173 lb 1.006 oz Body Mass Index (BMI) 24.8 Intake and Output for Last 24 Hours 08/22/19 08/23/19 08/24/19 23:59 23:59 23:59 Intake Total 1340 / 1570 555 / 555 Output Total 2300 / 2700 850 / 850 Balance -960 / -1130 -295 / -295 Laboratory Results 08/23/19 16:43: POC Glucose 237 H 08/23/19 21:07: POC Glucose 154 H 08/24/19 05:35: Sodium 140, Potassium 3.9, Chloride 105, Carbon Dioxide 32.0, Anion Gap 3 L, BUN 43 H, Creatinine 2.00 H, Estim Creat Clear Calc 37.65, Est GFR (MDRD) Af Amer 43 L, Est GFR (MDRD) Non-Af 36 L, BUN/Creatinine Ratio 21.5 H , Glucose 149 H, Calcium 8.6 08/24/19 06:33: POC Glucose 143 H 08/24/19 11:00: POC Glucose 289 H Current Medications Acetaminophen (Tylenol) 650 mg PO Q6H PRN PRN PRN Reason: Non-cardiac pain (-05/28) Al Hydroxide/Mg Hydroxide (Mylanta Ii) 15 - 30 ml PO Q4H PRN PRN PRN Reason: INDIGESTION Albuterol Sulfate (Ventolin Aerosols) 2.5 mg INHALATION Q2H PRN PRN PRN Reason: dyspnea, wheezing Amiodarone HCl (Cordarone) 200 mg PO BID [facility] Last Admin: 08/24/19 10:56 Dose: 200 mg Documented by: Apixaban (Eliquis) 5 mg PO BID [facility] Last Admin: 08/24/19 10:56 Dose: 5 mg Documented by: Atorvastatin Calcium (Lipitor) 40 mg PO QHS [facility] Last Admin: 08/23/19 21:09 Dose: 40 mg Documented by: Carvedilol (Coreg) 3.125 mg PO BID [facility] Last Admin: 08/24/19 10:56 Dose: 3.125 mg Documented by: Clonazepam (Klonopin) 0.5 mg PO QHS [facility] Last Admin: 08/23/19 21:10 Dose: Not Given Documented by: Glucagon () 1 mg IM .X1 PRN PRN Reason: Hypoglycemia Guaifenesin (Robitussin) 20 ml PO Q4H PRN PRN PRN Reason: COUGH Hydralazine HCl (Apresoline Iv) 10 mg IV Q4H PRN PRN PRN Reason: SBP > 160 Dextrose (Dextrose 10%-Water) 250 mls @ 999 mls/hr IV .Q16M PRN; Protocol PRN Reason: HYPOGLYCEMIA Sodium Chloride () 500 mls @ 15 mls/hr IV PRN PRN PRN Reason: Blood Transfusion Sodium Chloride () 250 mls @ 15 mls/hr IV .[id number] PRN PRN Reason: Saline Flush Insulin Human Lispro (Humalog Kwikpen (Bkc)) 0 unit SC ACHS [facility]; Protocol Last Admin: 08/24/19 11:45 Dose: 4 unit Documented by: Losartan Potassium (Cozaar) 25 mg PO DAILY [facility] Last Admin: 08/24/19 10:56 Dose: 25 mg Documented by: Magnesium Hydroxide (Milk Of Magnesia) 30 ml PO DAILY PRN PRN Reason: Constipation Melatonin (Melatonin) 3 mg PO QHS PRN PRN PRN Reason: INSOMNIA Morphine Sulfate () 1 - 2 mg IV Q4H PRN PRN PRN Reason: Pain Score 1-10/10 Nitroglycerin (Nitrostat) 0.4 mg SUBLINGUAL Q5M PRN PRN Reason: CARDIAC/CHEST PAIN Ondansetron HCl (Zofran) 4 mg IV Q8H PRN PRN PRN Reason: NAUSEA/VOMITING Psyllium Hydrophilic Mucilloid (Metamucil) 1 packet PO DAILY PRN PRN PRN Reason: Constipation Senna/Docusate Sodium (Senokot-S, Myriam-Colace) 2 tablet PO BID PRN PRN PRN Reason: Constipation Sodium Chloride () 10 - 40 ml IV UD PRN PRN Reason: SALINE FLUSH Last Admin: 08/23/19 21:10 Dose: 10 ml Documented by: Throat Lozenges (Cepacol Sore Throat Lozenge) 1 lozenge MUCOUS MEM Q2H PRN PRN PRN Reason: Sore Throat/Cough Meaningful Use Info Meaningful Use Diagnoses (Choose all that apply): CHF - CHF STEPHEN/ARB ordered at discharge?: Yes Documented LVEF (%): 20 Code Visit Inpatient E&M: 12205 Disch Hosp
[2019-08-24 11:29] VITALS: PULSE 71
[2019-08-24] MEDS: Insulin Lispro 100 UNIT/ML INSULN.PEN SC (11:45)
--- NOTE | 2019-08-24 14:11 | PHA.DC.MC ---
Pharmacy Service has performed discharge medication reconciliation and counseling for this patient. 1. CARVEDILOL 3.125MG PO BID 2. FUROSEMIDE 60MG PO DAILY 3. AMIODARONE 200MG PO BID X 7 DAYS, THEN 200MG PO DAILY The patient's discharge medication list was reviewed for discrepancies and discrepancies were resolved. Home Medications Apixaban [Eliquis] 5 mg PO BID 08/22/19 Atorvastatin Calcium 40 mg PO QHS 08/22/19 Losartan Potassium [Cozaar] 25 mg PO DAILY 08/22/19 Metformin HCl 500 mg PO BID 08/22/19 Amiodarone HCl [Cordarone] 200 mg PO BID #0 08/24/19 Carvedilol [Coreg (Beta Navya)] 3.125 mg PO BID #60 tab 08/24/19 Furosemide [Lasix] 60 mg PO DAILY #90 tab 08/24/19 The patient was counseled on the following discharge medications and changes in medications for homegoing were reviewed. The Reason for Use, instructions for use, and potential side effects were reviewed for all new medications. The patient's questions regarding all of their medications were answered. The patient was able to verbally demonstrate an understanding of their discharge medications.
== END 2019-08-24 14:12 | disposition home or self-care (01) | DRG 291 ==
LOC: ED 16:28 → PCU 17:16
PROVIDERS: Internal Medicine; Nurse Practitioner Family; Admitting Provider Family Medicine; Emergency Provider Emergency Medicine; Family Provider Internal Medicine; PCP Internal Medicine; Referring Provider Family Medicine; Visit Provider Hospitalist
DX: I13.0 Hypertensive heart and chronic kidney disease with heart failure and stage 1 through stage 4 chronic kidney disease, or unspecified chronic kidney disease (principal); I50.23 Acute on chronic systolic (congestive) heart failure; N17.9 Acute kidney failure, unspecified; N18.3 Chronic kidney disease, stage 3 (moderate); E11.22 Type 2 diabetes mellitus with diabetic chronic kidney disease; I42.9 Cardiomyopathy, unspecified; E78.5 Hyperlipidemia, unspecified; I48.0 Paroxysmal atrial fibrillation; Z86.73 Personal history of transient ischemic attack (TIA), and cerebral infarction without residual deficits; I25.2 Old myocardial infarction; Z79.02 Long term (current) use of antithrombotics/antiplatelets; Z79.84 Long term (current) use of oral hypoglycemic drugs; F32.9 Major depressive disorder, single episode, unspecified; Z79.899 Other long term (current) drug therapy; Z87.891 Personal history of nicotine dependence; Z99.81 Dependence on supplemental oxygen
CPT/HCPCS: 36415; 71045; 80048; 82962; 83036; 83735; 83880; 84443; 84484; 85025; 92526; 92610; 93005; 93306; 94762; 97161; 97165; 97802; 99251; 99285; Q9957; A4216; C8929; G0463; J1940

== ENCOUNTER → 2019-09-09 12:29 | Outpatient (CLI) | payer MEDICARE, SELFPAY ==
[2019-09-01 15:44] VITALS: BMI 24.3
--- NOTE | 2019-09-09 12:30 | CDU_ITS ---
Reason For Study: CVA Rt. Velocities/BP Lt. Velocities/BP Prox CCA 106.5/18.8 cm/sec. Prox CCA 115.6/22.5 cm/sec. Mid CCA 77.7/20 cm/sec. Mid CCA 1016.5/26.1 cm/sec. Dist CCA 69.1/20 cm/sec. Dist CCA 93.7/18.8 cm/sec. Prox ICA 90/21.2 cm/sec. Prox ICA 101.1/13.9 cm/sec. Mid ICA 72.8/23.7 cm/sec. Mid ICA 65.5/27.4 cm/sec. Dist ICA 92.5/43.4 cm/sec. Dist ICA 85.1/28.6 cm/sec. Rt. ICA/CCA = 1.2. Lt. ICA/CCA = 0.9. Prox ECA 104.8/10.2 cm/sec. Prox ECA 101.1/13.9 cm/sec. Rt. Vert. 54.1/13.5 cm/sec. Lt. Vert. 63/21.2 cm/sec. Right Extracranial There is intimal thickening but no significant atherosclerotic plaque noted in the right common carotid artery. There is intimal thickening but no significant atherosclerotic plaque noted in the right internal carotid artery. There is intimal thickening but no significant atherosclerotic plaque noted in the right external carotid artery. Antegrade flow is noted in the right vertebral artery. Left Extracranial There is intimal thickening but no significant atherosclerotic plaque noted in the left common carotid artery. There is homogeneous, smooth atherosclerotic plaque noted in the left internal carotid artery. There is intimal thickening but no significant atherosclerotic plaque noted in the left external carotid artery. Antegrade flow is noted in the left vertebral artery. Procedure Carotid Duplex [id number]. Exam performed in department. Interpretation Summary No hemodynamically significant plaque or stenosis right extracranial internal carotid with less than 50% stenosis <50% stenosis right external carotid No hemodynamically significant plaque or stenosis left extracranial internal carotid with less than 50% stenosis <50% stenosis left external carotid Patent, antegrade, <50% stenosis bilateral vertebrals Ordering Physician: Leon Bedolla Referring Physician: Danna Alcantar Performed By: Filomena Muñoz RVT
== END ==
PROVIDERS: Family Provider Internal Medicine; PCP Internal Medicine; Referring Provider Internal Medicine Cardiovascular Disease; Visit Provider Internal Medicine Cardiovascular Disease
DX: R09.89 Other specified symptoms and signs involving the circulatory and respiratory systems (principal); E78.5 Hyperlipidemia, unspecified; Z86.73 Personal history of transient ischemic attack (TIA), and cerebral infarction without residual deficits
CPT/HCPCS: 93880

== ENCOUNTER → 2019-09-11 09:05 | Outpatient (CLI) | payer MEDICARE, SELFPAY ==
[2019-09-01 15:44] VITALS: BMI 24.3
== END ==
LOC: LAB 09:06
PROVIDERS: PCP Internal Medicine; Referring Provider Internal Medicine Cardiovascular Disease; Visit Provider Internal Medicine Cardiovascular Disease
DX: R69 Illness, unspecified (principal)

== ENCOUNTER 2019-09-16 06:20 | Day surgery (SDC) | payer MEDICARE, SELFPAY ==
--- NOTE | 2019-09-01 04:47 | HP_ITS ---
HPI HPI History of Present Illness Surgical H&P: Yes Details: Mr. Ortiz is a very pleasant 69-year-old gentleman with a history of atrial fibrillation, former heavy smoker of approximately [id number] smoking history, quit several weeks ago, hypertension, diabetes, recently admitted in August 17, 2019 with new onset CVA at [facility] confirmed by MRI of his brain on 08/17/2019 which demonstrated multiple cortical areas of diffusion restriction left parietal lobe consistent with recent infarction and small old infarcts in the left inferior cerebellar hemisphere. Prior to his admission, the patient had been struggling with what appears to be an upper respiratory tract infection and [facility] and received antibiotics followed by an inhaler which did not improve things. When the patient became so weak he was admitted to [facility], at which time he then had a stroke in the hospital. Patient was then placed on Eliquis and amiodarone for presumed paroxysmal atrial fibrillation. At that time he underwent an echocardiogram on 08/17/2019 which showed an EF around 20% with severe global hypokinesis and severe LV dilatation. Patient was subsequently discharged home, and then was readmitted to [facility] with shortness of breath, dyspnea on exertion, sinus tachycardia, found to be in congestive heart failure. He underwent IV diuresis. He underwent an echocardiogram on 08/23/2019 at [facility] which had the following results: Moderately dilated left ventricle. The estimated ejection fraction is 15 %. Stage 3 diastolic dysfunction. The left atrium is mildly enlarged. Patient was initially treated medically with diuretic therapy and subsequently sent home but then returned 1 day later on 08/23/2019, and was seen by my colleague Dr. Bustamante in consultation. He was scheduled to see me as an outpatient on 01 September and he wished to see me going forward. In addition the patient had episodes of paroxysmal atrial fibrillation and was placed on amiodarone, Eliquis, Coreg, Lasix and losartan. Patient is now here in follow-up. He states that he has had minimal sequelae from his CVA, but nonetheless is in a wheelchair today. He denies previous CVA, previous catheterization, and essentially has never really gone to the doctor. In our office today's blood pressure is 88/50, and pulse is 64 and regular. His physical exam clear lungs bilaterally, no carotid bruits, 2+ upstroke bilaterally, regular rate and rhythm, normal S1/S2, no S3 or S4, no edema is noted. Lipids are pending. EKG dated 08/23/2019 showed normal sinus rhythm with right bundle branch block. Intake Vital Signs 09/01/19 BP 88/50 L 09/01/19 Blood Pressure Location Rt brachial 09/01/19 Position Standing 09/01/19 Respiration 20 H 09/01/19 Pulse 64 09/01/19 Pulse Source Auscultation 09/01/19 Height 5 ft 11 in 09/01/19 Weight: 174 lb 09/01/19 BMI 24.3 09/01/19 BP 90/50 L 09/01/19 Blood Pressure Location Rt brachial 09/01/19 Position Sitting 09/01/19 Respiration 20 H 09/01/19 Pulse 64 09/01/19 Pulse Source Auscultation Intake Visit Reasons: S/P PCU (MICA RAYA) Employee Benefits Specialist Required: No Accompanied by: Is patient in pain?: No Allergies Sulfa (Sulfonamide Antibiotics) Allergy (Verified 08/25/19 09:54) Other Medications Metformin HCl 500 mg PO BID 08/22/19 [History Confirmed 09/01/19] amiodarone 200 mg tablet 200 mg PO DAILY #90 tab 09/01/19 [Rx Confirmed 09/01/19] apixaban 5 mg tablet 5 mg PO BID #60 tab 09/01/19 [Rx Confirmed 09/01/19] atorvastatin 40 mg tablet 40 mg PO QHS #90 tab 09/01/19 [Rx Confirmed 09/01/19] carvedilol 3.125 mg tablet 3.125 mg PO BID #180 tab 09/01/19 [Rx Confirmed 09/01/19] furosemide 20 mg tablet 60 mg PO DAILY #270 tab 09/01/19 [Rx Confirmed 09/01/19] losartan 25 mg tablet 25 mg PO DAILY #90 tab 09/01/19 [Rx Confirmed 09/01/19] [facility] Medical History Non-rheumatic tricuspid valve insufficiency (Chronic) Nonrheumatic mitral valve regurgitation (Chronic) CVA (cerebral vascular accident) (Chronic) Atrial fibrillation (Chronic) CHF (congestive heart failure) (Chronic) Diastolic dysfunction (Acute) Dilated cardiomyopathy (Acute) Essential hypertension (Chronic) Hyperlipidemia (Chronic) Diabetes mellitus, type II (Chronic) Surgical History H/O hernia repair (Chronic) Family History Mother Congestive heart failure Viral cardiomyopathy Father Lung cancer Brain cancer Social History (Updated 09/01/19 @ 16:48 by Leon Bedolla MD) Smoking Status: Former smoker ROS Const Const: Positive for fatigue, weakness and other (CVA 08/17. New a-fib. EF 15. [facility] then 1 day later [facility] w/CHF, SOB.); negative for body ache, fever(s), headache(s), chills, frequent falls, night sweats, daytime sleepiness, difficulty sleeping, excessive sweating, weight gain, weight loss, increased appetite, poor appetite or anorexia Eyes Eyes: Negative for blind spots, loss of peripheral vision, transient loss of vision, blurry vision, change in vision, double vision, floaters, tunnel vision or other ENT ENT: Positive for dizziness; negative for headache(s), hearing loss, tinnitus, Nosebleed/epistaxis, balance problems, post nasal drip, lip swelling, tongue swelling, bleeding gums, hoarseness, neck pain, dry mouth or other Cardio Chest Pain: No Palpitations: Yes (If lies on left side can feel heart beating or thumping) feels like its: thumping Edema: None Muscle aches with walking: None Resp Respiratory: Negative for SOB with activity, SOB at rest, SOB orthopnea\SOB lying down, Cough, Coughing up blood/hemoptysis, chest congestion, pain on inspiration, snoring, stridor, wheezing, crackles, paroxysmal nocturnal dyspnea or other GI GI: Negative nausea, vomiting, heartburn, constipation, belching, bloating, cramping, vomiting blood/hematemesis, bright, red blood in stools, black,tarry stools, loose stools, Difficulty Swallowing or other : Negative for hematuria, frequent nighttime urination/ nocturia, erectile dysfunction or abnormal vaginal bleeding Musc Musc: Negative for muscle aches/ myalgia, muscle weakness, joint pain or balance problems Skin Skin: Negative redness, non-healing lesions, rash, unusual bruising, skin ulcer, wounds, jaundice or other Neuro Neuro: Positive for dizziness, lightheadedness, weakness and other ( Recent CVA); negative for near syncope, syncope, orthostatic symptoms, frequent falls, headache(s), confusion, memory loss, restless legs, blurry vision, double vision, vertigo, seizures or lack of coordination Varun Hematologic/Lymphatic: Negative for easy bleeding, easy bruising, enlarged lymph nodes or other Endo Endo: Positive for fatigue; negative for cold intolerance, heat intolerance, excessive sweating, flushing, increased thirst/drinking, increased hunger, hair loss, hair growth or other Psych Psych: Negative for anxiety, depression, thoughts of harming anyone, thoughts of harming yourself, visual hallucinations, panic attacks or audible hallucinations Allergy Allergy/Immunology: Negative for throat swelling, Negative for tongue swelling, Negative for hives, Negative for rash, Negative for lip swelling Cardiology Exam Const Appearance: cooperative, healthy appearing and no acute distress Nutritional Appearance: well nourished Orientation: alert, oriented x3 and oriented to person Head Head: normal to inspection, normocephalic and atraumatic Nose: external nose normal Face and Sinus: face symmetric Mouth: oral mucosae normal Eyes General: appearance normal, both eyes and all related structures Eyelids: eyelids normal Conjunctivae: conjunctivae normal Pupils: PERRL and normal by confrontation EOM: EOM intact bilaterally Neck Neck: normal visual inspection and full ROM Carotids: normal carotid upstroke Chest Chest inspection: normal inspection of the chest Auscultation: Bilateral: Clear to Auscultation Cardio Palpation: normal PMI Rate: regular rate Rhythm: regular rhythm Heart sounds: S1 normal and S2 normal GI GI: normal to inspection, no hepatosplenomegaly and bowel sounds present Neuro General: alert, awake, oriented x3, CN's II-XI intact bilaterally and moves all extremities Skin Skin: no rashes or lesions noted Extremities Pulses: Normal: Right Femoral Pulse, Left Femoral Pulse, Right Dorsalis Pedis Pulse, Left Dorsalis Pedis Pulse, Right Posterior Tibial Pulse, Left Posterior Tibial Pulse, Right Radial Pulse, Left Radial Pulse Lower Extremity Edema: None: Bilateral Psych Psychological: normal affect Assessment & Plan 1. Atrial fibrillation I48.91 Plan 1. Atrial fibrillation: The patient supposedly was found to have atrial fibrillation during his admission at [facility] at which time he had a CVA during his stay there. The patient was placed on amiodarone therapy as well as Eliquis for his CVA. I recommended to continue his amiodarone 200 mg a day, Eliquis until 3 days prior to his catheterization, decrease his carvedilol to 3.125 mg p.o. twice daily, continue his Lasix as well as his losartan. His EKG shows normal sinus rhythm as of his visit to [facility] on August 23, 2019. No cardioversion planned at this time. In addition he will undergo a carotid Doppler to evaluate his carotids for possible carotid occlusive disease given his CVA. 2. Dilated cardiomyopathy I42.0 EF 15% per echo 08/23/2019 [facility](20% per echo done 08/17/19 @ [facility]). Plan 2. Dilated cardiomyopathy: It is unclear as to the source of the patient's LV dysfunction the differential of which is arrhythmia, viral, or ischemic. Given the patient's recent CVA, I am hesitant to proceed with left heart catheterization until least 30 days after his CVA. We will make arrangements for the patient undergo a left her catheterization with a long sheath and an exchange length J-wire to minimize possible aorto carotid atheroemboli. The risk/benefits of the procedure were thoroughly explained the patient and informed consent was obtained. The patient has no significant coronary disease will be referred to cardiac rehab for 3 months time followed by repeat echocardiogram. If he has had no improvement of his LV function he will require a prophylactic AICD defibrillator. 3. Hyperlipidemia E78.5 Plan 3. Hyperlipidemia: Given his diabetes requires aggressive LDL reduction. He is currently on Lipitor. Repeat lipids are pending. 4. Return office in 6 months. This note was generated using a voice recognition system and there may be incorrect words, spelling or punctuation that were not noted when reviewing the office note prior to saving. Plan Detail Other Medications New: apixaban 5 mg PO BID 60 tabs 11RF blood thinner atorvastatin 40 mg PO QHS 90 tabs 3RF cholesterol losartan 25 mg PO DAILY 90 tabs 3RF blood pressure Changed: From: amiodarone Continue amiodarone 200 mg twice daily for 1 more week and then reduce to amiodarone 200 mg daily. 200 mg PO BID #0 0RF To: amiodarone Continue amiodarone 200 mg twice daily for 1 more week and then reduce to amiodarone 200 mg daily. 200 mg PO DAILY 90 tabs 3RF Refilled: carvedilol 3.125 mg PO BID 180 tabs 3RF furosemide 60 mg (3 x 20 mg) PO DAILY 270 tabs 3RF Follow Up +6M (Graeme) Coding Level of Care Code Off vis,new,level 4 Diagnoses Atrial fibrillation I48.91 Dilated cardiomyopathy I42.0 Hyperlipidemia E78.5 Coding Level of Care Code Off vis,new,level 4 Diagnoses Atrial fibrillation I48.91 Dilated cardiomyopathy I42.0 Hyperlipidemia E78.5 Supplemental Info Supplemental Information Diagnostics Electrocardiogram 08/23/19 Echocardiogram 08/23/19 Chest X-Ray 08/22/19 09/01/19 1648 <Electronically signed by Leon Bedolla MD> Date _ Leon Bedolla MD
[2019-09-01 15:44] VITALS: BMI 24.3
[2019-09-11 10:55] LABS: Anion Gap 3 (5-15); BUN 31 mg/dL (7-18); BUN/Creat Ratio 18.9 RATIO (10-20); Calcium,Total 8.7 mg/dL (8.5-10.1); Chloride 106 mmol/L (98-107); Creatinine, Serum 1.64 mg/dL (0.70-1.30); EST Glomerular Filtration Rate 45 mL/min (>60); Est Glom Filt Rate - Afr Amer 54 mL/min (>60); Glucose 240 mg/dL (74-106); Sodium Level 139 mmol/L (136-145)
[2019-09-15 08:44] VITALS: BMI 24.3
[2019-09-16 10:21] LABS: Bedside Glucose 92 mg/dL (70-110)
--- NOTE | 2019-09-16 11:46 | CL.D_ITS ---
Patient Name: MIESHA HOUSE Study Date: 09/16/2019 Performing: Leon Bedolla MD Ht: 70.86 inches 180 cm : 1950 Wt: 174.17 lbs 79 kg Age: 69 Gender: male BSA: 1.99 Amended PROCEDURE(S) PERFORMED [id number]/LV CLINICAL PROFILE AND INDICATIONS Indications: Suspected CAD, Cardiac Arrythmia, Cardiomyopathy, LV Dysfunction Heart Failure: NYHA Class: 1, Newly Diagnosed: Yes, Heart Failure Type: Systolic Stress/Imaging Stress/Image Study Performed: No Angina Classification Anginal Classification w/in 2 Weeks: Anginal Equivalent Dyspnea CAD Presentations: No Sxs, no angina. Other: Dyspnea on exertion Comorbidities/Risk Factors: Current/Recent Smoker (< 1year) Hypertension Dyslipidemia Cerebrovascular Disease Diabetes Mellitus: Diabetes Therapy: Oral CONCLUSIONS Non obstructive coronary arteries Global LV systolic dysfunction- Severe LVEF: by LV gram 10-15 % Elevated Left Ventricular End Diastolic Pressure Cardiomyopathy: Dilated RECOMMENDATIONS Management as per referring Marker Hand d/c plavix; continue baby asa Start lopressor 12.5 mg po bid and titrate up from there; pt unable to tolerate coreg d/t dizziness Restart eliquis on 09/20/2019\ Cardiac rehab Repeat echo after cardiac rehab; if LV function still less than 35%, pt will need AICD. Manual sheath removal. DESCRIPTION OF PROCEDURE The patient arrived to the procedure lab. The risks and benefits of the procedure as well as a full d escription of our services here and current unavailability of surgical backup were fully explained to the patient and/or their significant other prior to the catheterization. The Timeout was completed, verifying the correct patient and procedure. The patient's procedural site was prepped and draped in the usual fashion. Local anesthetic was given subcutaneously to right groin region with Lidocaine 2%. Using a modified Seldinger technique, arterial access was obtained via the right femoral artery, a 4 Fr sheath was inserted Left Coronary Artery selective angiography was performed in multiple views us ing a 4 Fr. JL5 catheter. Right Coronary Artery selective angiography was then performed in multiple views using a 4 Fr. 3DRC catheter. Left Ventriculography was performed in WICK projection using a 4 Fr . Pigtail catheter. LV to AO pullback pressures were then recorded.The arterial sheath was pulled and manual compression applied until hemostasis is achieved. CORONARY ANGIOGRAPHY DOMINANCE: Left Dominant LEFT HEART ASSESSMENT Left Ventricular Ejection Fraction: by LV Gram 10-15 % Global Hypokinesis - Severe Depressed Left Ventricular systolic function LVEDP: 27 mmHg Elevated Left Ventricular End Diastolic Pressure LEFT MAIN: Angiographically normal LEFT ANTERIOR DESCENDING ARTERY: Non-obstructive DIAGONAL 1: Proximal - Angiographically normal CIRCUMFLEX ARTERY: Non-obstructive OM 1: Proximal - Angiographically normal RIGHT CORONARY ARTERY: Angiographically normal COMPLICATIONS No Complications PROCEDURE MEDICATIONS Oxygen: 2 L/min via nasal cannula IV Fluids: .9 NaCl IV started @ 150 ml/hr 09/16/2019 07:23:57 SUMMARY OF HEMODYNAMIC DATA Time AIR REST ECG 07:18:46 AO 162/80 (109) SA 11:26:00 LV 168/-10, 25 11:31:12 LV 167/-11, 27 11:31:18 LVp 165/-11, 27 11:31:27 AOp 171/76 (114) 11:31:32 Signed By Leon Bedolla MD On 09/16/2019 11:45:35 Leon Bedolla MD
--- NOTE | 2019-09-18 13:39 | HP.PCM_ITS ---
Problem List (1) Dilated cardiomyopathy Status: Acute Comment: EF 15% per echo 08/23/2019 [facility](20% per echo done 08/17/19 @ [facility]). (2) Atrial fibrillation Status: Chronic (3) CHF (congestive heart failure) Status: Chronic Comment: EF 15% per echo 08/23/2019 [facility] (4) Essential hypertension Status: Chronic (5) Hyperlipidemia Status: Chronic History and Physical Date of Admission: 09/16/19 [facility] [address] [place] [address] OFFICE VISIT Date of Service: 09/01/19 MR#: [id number] Acct: [id number] Name: MIESHA HOUSE Rep #: [id number] : 1950 Provider: Leon baker MD Age/Sex: 69/M [place] [facility] Signed HPI HPI History of Present Illness Surgical H&P: Yes Details: Mr. House is a very pleasant 69-year-old gentleman with a history of atrial fibrillation, former heavy smoker of approximately [id number] smoking history, quit several weeks ago, hypertension, diabetes, recently admitted in August 17, 2019 with new onset CVA at [facility] confirmed by MRI of his brain on 08/17/2019 which demonstrated multiple cortical areas of diffusion restriction left parietal lobe consistent with recent infarction and small old infarcts in the left inferior cerebellar hemisphere. Prior to his admission, the patient had been struggling with what appears to be an upper respiratory tract infection and [facility] and received antibiotics followed by an inhaler which did not improve things. When the patient became so weak he was admitted to [facility], at which time he then had a stroke in the hospital. Patient was then placed on Eliquis and amiodarone for presumed paroxysmal atrial fibrillation. At that time he underwent an echocardiogram on 08/17/2019 which showed an EF around 20% with severe global hypokinesis and severe LV dilatation. Patient was subsequently discharged home, and then was readmitted to [facility] with shortness of breath, dyspnea on exertion, sinus tachycardia, found to be in congestive heart failure. He underwent IV diuresis. He underwent an echocardiogram on 08/23/2019 at [facility] which had the following results: Moderately dilated left ventricle. The estimated ejection fraction is 15 %. Stage 3 diastolic dysfunction. The left atrium is mildly enlarged. Patient was initially treated medically with diuretic therapy and subsequently sent home but then returned 1 day later on 08/23/2019, and was seen by my colleague Dr. Bustamante in consultation. He was scheduled to see me as an outpatient on 01 September and he wished to see me going forward. In addition the patient had episodes of paroxysmal atrial fibrillation and was placed on amiodarone, Eliquis, Coreg, Lasix and losartan. Patient is now here in follow-up. He states that he has had minimal sequelae from his CVA, but nonetheless is in a wheelchair today. He denies previous CVA, previous catheterization, and essentially has never really gone to the doctor. In our office today's blood pressure is 88/50, and pulse is 64 and regular. His physical exam clear lungs bilaterally, no carotid bruits, 2+ upstroke bilaterally, regular rate and rhythm, normal S1/S2, no S3 or S4, no edema is noted. Lipids are pending. EKG dated 08/23/2019 showed normal sinus rhythm with right bundle branch block. Intake Vital Signs 09/01/19 BP 88/50 L 09/01/19 Blood Pressure Location Rt brachial 09/01/19 Position Standing 09/01/19 Respiration 20 H 09/01/19 Pulse 64 09/01/19 Pulse Source Auscultation 09/01/19 Height 5 ft 11 in 09/01/19 Weight: 174 lb 09/01/19 BMI 24.3 09/01/19 BP 90/50 L 09/01/19 Blood Pressure Location Rt brachial 09/01/19 Position Sitting 09/01/19 Respiration 20 H 09/01/19 Pulse 64 09/01/19 Pulse Source Auscultation Intake Visit Reasons: S/P PCU (MICA RAYA) Take Off Worker Required: No Accompanied by: Is patient in pain?: No Allergies Sulfa (Sulfonamide Antibiotics) Allergy (Verified 08/25/19 09:54) Other Medications Metformin HCl 500 mg PO BID 08/22/19 [History Confirmed 09/01/19] amiodarone 200 mg tablet 200 mg PO DAILY #90 tab 09/01/19 [Rx Confirmed 09/01/19] apixaban 5 mg tablet 5 mg PO BID #60 tab 09/01/19 [Rx Confirmed 09/01/19] atorvastatin 40 mg tablet 40 mg PO QHS #90 tab 09/01/19 [Rx Confirmed 09/01/19] carvedilol 3.125 mg tablet 3.125 mg PO BID #180 tab 09/01/19 [Rx Confirmed 09/01/19] furosemide 20 mg tablet 60 mg PO DAILY #270 tab 09/01/19 [Rx Confirmed 09/01/19] losartan 25 mg tablet 25 mg PO DAILY #90 tab 09/01/19 [Rx Confirmed 09/01/19] COUNTS INCLUDE 234 BEDS AT THE [facility] Medical History Non-rheumatic tricuspid valve insufficiency (Chronic) Nonrheumatic mitral valve regurgitation (Chronic) CVA (cerebral vascular accident) (Chronic) Atrial fibrillation (Chronic) CHF (congestive heart failure) (Chronic) Diastolic dysfunction (Acute) Dilated cardiomyopathy (Acute) Essential hypertension (Chronic) Hyperlipidemia (Chronic) Diabetes mellitus, type II (Chronic) Surgical History H/O hernia repair (Chronic) Family History Mother Congestive heart failure Viral cardiomyopathy Father Lung cancer Brain cancer Social History (Updated 09/01/19 @ 16:48 by Leon Bedolla MD) Smoking Status: Former smoker ROS Const Const: Positive for fatigue, weakness and other (CVA 08/17. New a-fib. EF 15. [facility] then 1 day later [facility] w/CHF, SOB.); negative for body ache, fever(s), headache(s), chills, frequent falls, night sweats, daytime sleepiness, difficulty sleeping, excessive sweating, weight gain, weight loss, increased appetite, poor appetite or anorexia Eyes Eyes: Negative for blind spots, loss of peripheral vision, transient loss of vision, blurry vision, change in vision, double vision, floaters, tunnel vision or other ENT ENT: Positive for dizziness; negative for headache(s), hearing loss, tinnitus, Nosebleed/epistaxis, balance problems, post nasal drip, lip swelling, tongue swelling, bleeding gums, hoarseness, neck pain, dry mouth or other Cardio Chest Pain: No Palpitations: Yes (If lies on left side can feel heart beating or thumping) feels like its: thumping Edema: None Muscle aches with walking: None Resp Respiratory: Negative for SOB with activity, SOB at rest, SOB orthopnea\SOB lying down, Cough, Coughing up blood/hemoptysis, chest congestion, pain on i nspiration, snoring, stridor, wheezing, crackles, paroxysmal nocturnal dyspnea or other GI GI: Negative nausea, vomiting, heartburn, constipation, belching, bloating, cramping, vomiting blood/hematemesis, bright, red blood in stools, black,tarry stools, loose stools, Difficulty Swallowing or other : Negative for hematuria, frequent nighttime urination/ nocturia, erectile dysfunction or abnormal vaginal bleeding Musc Musc: Negative for muscle aches/ myalgia, muscle weakness, joint pain or balance problems Skin Skin: Negative redness, non-healing lesions, rash, unusual bruising, skin ulcer, wounds, jaundice or other Neuro Neuro: Positive for dizziness, lightheadedness, weakness and other ( Recent CVA); negative for near syncope, syncope, orthostatic symptoms, frequent falls, headache(s), confusion, memory loss, restless legs, blurry vision, double vision, vertigo, seizures or lack of coordination Varun Hematologic/Lymphatic: Negative for easy bleeding, easy bruising, enlarged lymph nodes or other Endo Endo: Positive for fatigue; negative for cold intolerance, heat intolerance, excessive sweating, flushing, increased thirst/drinking, increased hunger, hair loss, hair growth or other Psych Psych: Negative for anxiety, depression, thoughts of harming anyone, thoughts of harming yourself, visual hallucinations, panic attacks or audible hallucinations Allergy Allergy/Immunology: Negative for throat swelling, Negative for tongue swelling, Negative for hives, Negative for rash, Negative for lip swelling Cardiology Exam Const Appearance: cooperative, healthy appearing and no acute distress Nutritional Appearance: well nourished Orientation: alert, oriented x3 and oriented to person Head Head: normal to inspection, normocephalic and atraumatic Nose: external nose normal Face and Sinus: face symmetric Mouth: oral mucosae normal Eyes General: appearance normal, both eyes and all related structures Eyelids: eyelids normal Conjunctivae: conjunctivae normal Pupils: PERRL and normal by confrontation EOM: EOM intact bilaterally Neck Neck: normal visual inspection and full ROM Carotids: normal carotid upstroke Chest Chest inspection: normal inspection of the chest Auscultation: Bilateral: Clear to Auscultation Cardio Palpation: normal PMI Rate: regular rate Rhythm: regular rhythm Heart sounds: S1 normal and S2 normal GI GI: normal to inspection, no hepatosplenomegaly and bowel sounds present Neuro General: alert, awake, oriented x3, CN's II-XI intact bilaterally and moves all extremities Skin Skin: no rashes or lesions noted Extremities Pulses: Normal: Right Femoral Pulse, Left Femoral Pulse, Right Dorsalis Pedis Pulse, Left Dorsalis Pedis Pulse, Right Posterior Tibial Pulse, Left Posterior Tibial Pulse, Right Radial Pulse, Left Radial Pulse Lower Extremity Edema: None: Bilateral Psych Psychological: normal affect Assessment & Plan 1. Atrial fibrillation I48.91 Plan 1. Atrial fibrillation: The patient supposedly was found to have atrial fibrillation during his admission at [facility] at which time he had a CVA during his stay there. The patient was placed on amiodarone therapy as well as Eliquis for his CVA. I recommended to continue his amiodarone 200 mg a day, Eliquis until 3 days prior to his catheterization, decrease his carvedilol to 3.125 mg p.o. twice daily, continue his Lasix as well as his losartan. His EKG shows normal sinus rhythm as of his visit to [facility] on August 23, 2019. No cardioversion planned at this time. In addition he will undergo a carotid Doppler to evaluate his carotids for possible carotid occlusive disease given his CVA. 2. Dilated cardiomyopathy I42.0 EF 15% per echo 08/23/2019 [facility](20% per echo done 08/17/19 @ [facility]). Plan 2. Dilated cardiomyopathy: It is unclear as to the source of the patient's LV dysfunction the differential of which is arrhythmia, viral, or ischemic. Given the patient's recent CVA, I am hesitant to proceed with left heart catheterization until least 30 days after his CVA. We will make arrangements for the patient undergo a left her catheterization with a long sheath and an exchange length J-wire to minimize possible aorto carotid atheroemboli. The risk/benefits of the procedure were thoroughly explained the patient and informed consent was obtained. The patient has no significant coronary disease will be referred to cardiac rehab for 3 months time followed by repeat echocardiogram. If he has had no improvement of his LV function he will require a prophylactic AICD defibrillator. 3. Hyperlipidemia E78.5 Plan 3. Hyperlipidemia: Given his diabetes requires aggressive LDL reduction. He is currently on Lipitor. Repeat lipids are pending. 4. Return office in 6 months. This note was generated using a voice recognition system and there may be incorrect words, spelling or punctuation that were not noted when reviewing the office note prior to saving. Plan Detail Other Medications New: apixaban 5 mg PO BID 60 tabs 11RF blood thinner atorvastatin 40 mg PO QHS 90 tabs 3RF cholesterol losartan 25 mg PO DAILY 90 tabs 3RF blood pressure Changed: From: amiodarone Continue amiodarone 200 mg twice daily for 1 more week and then reduce to amiodarone 200 mg daily. 200 mg PO BID #0 0RF To: amiodarone Continue amiodarone 200 mg twice daily for 1 more week and then reduce to amiodarone 200 mg daily. 200 mg PO DAILY 90 tabs 3RF Refilled: carvedilol 3.125 mg PO BID 180 tabs 3RF furosemide 60 mg (3 x 20 mg) PO DAILY 270 tabs 3RF Follow Up +6M (Graeme) Coding Level of Care Code Off vis,new,level 4 Diagnoses Atrial fibrillation I48.91 Dilated cardiomyopathy I42.0 Hyperlipidemia E78.5 Coding Level of Care Code Off vis,new,level 4 Diagnoses Atrial fibrillation I48.91 Dilated cardiomyopathy I42.0 Hyperlipidemia E78.5 Supplemental Info Supplemental Information Diagnostics Electrocardiogram 08/23/19 Echocardiogram 08/23/19 Chest X-Ray 08/22/19 09/01/19 1251 <Electronically signed by Leon Bedolla MD> Date _ Leon Bedolla MD [facility] Signature: Date (if applicable) CC: Danna Alcantar DO ~ Code Visit Interventional cardiology addendum: The risk/benefits of the procedure were thoroughly explained the patient including specific attention to lack of onsite surgical backup, and the patient has agreed to proceed. No interim changes from his history and physical previously. Cardiac catheterization to follow.
== END 2019-09-16 16:10 | disposition home or self-care (01) ==
LOC: CLSP 06:21
PROVIDERS: Physician Assistant Medical; Family Provider Internal Medicine; PCP Internal Medicine; Referring Provider Internal Medicine Cardiovascular Disease; Visit Provider Internal Medicine Cardiovascular Disease
DX: I42.0 Dilated cardiomyopathy (principal); I48.91 Unspecified atrial fibrillation; E78.5 Hyperlipidemia, unspecified; I11.0 Hypertensive heart disease with heart failure; E11.9 Type 2 diabetes mellitus without complications; Z86.73 Personal history of transient ischemic attack (TIA), and cerebral infarction without residual deficits; Z87.891 Personal history of nicotine dependence; Z79.02 Long term (current) use of antithrombotics/antiplatelets; Z79.84 Long term (current) use of oral hypoglycemic drugs; Z79.899 Other long term (current) drug therapy
CPT/HCPCS: 36415; 80048; 82962; 93458; J7040; C1769; C1894; Q9967

== ENCOUNTER → 2019-09-24 | Outpatient (CLI) | payer MEDICARE, SELFPAY ==
[2019-09-15 08:44] VITALS: BMI 24.3
[2019-09-24 09:57] LABS: AST(SGOT) 14 U/L (15-37); Alanine Aminotransfer ALT/SGPT 42 U/L (16-61); Albumin, Serum 3.7 g/dL (3.2-5.0); Alkaline Phosphatase 88 U/L (45-117); Bilirubin, Direct 0.21 mg/dL (0.00-0.30); Cholesterol 107 mg/dL (200); Globulin 3.6 g/dL (2.2-4.2); High Density Lipoprotein 34 mg/dL; Protein, Total 7.3 g/dL (6.4-8.2); Triglycerides 117 mg/dL; Very Low Density Lipoprotein 23 mg/dL (5-40)
== END | disposition home or self-care (01) ==
LOC: LAB 09:16
PROVIDERS: PCP Internal Medicine; Referring Provider Internal Medicine Cardiovascular Disease; Visit Provider Internal Medicine Cardiovascular Disease
DX: E78.5 Hyperlipidemia, unspecified (principal)
CPT/HCPCS: 36415; 80061; 80076

== ENCOUNTER → 2019-09-24 | Outpatient (CLI) | payer MEDICARE, SELFPAY ==
[2019-09-15 08:44] VITALS: BMI 24.3
--- NOTE | 2019-09-24 11:06 | PCM.CR.ITP ---
Diagnosis - General Information Admitting Diagnosis: HF LVEF <35%, DIALTED CARDIOMYOPATHY Personal Learning Style:: Audio/Visual, Written Barriers to Learning: Hearing Impairment, Vision Impairment Stage of change r/t lifestyle modifications:: Action Gave educational material for:: Treating Heart Disease, Emotions & Heart Disease, Stress Management & Relaxation, Sleep Disorders & Heart Disease, How The Heart Works, What it means to have Heart Disease, How Coronary Artery Disease is Diagnosed, Heart Procedures, What Heart Medications Do, Risk Factors & Modifications, Living an Active Life, Nutrition - Education/Goals Individual Counseling: Initial Assessment: Abnormal Cholesterol Levels - HYPERLIPIDEMIA, High Blood Pressure - HYPERTENSION, Diabetes - TYPE II DM, A. Fasting Blood Sugar >100 - 240, AIC 7.4 Cardiac Rehabilitation Goals: 1. Maintain the individual as the primary focus of care. 2. To improve the patient's quality of life. 3. Identification of cardiac risk factors and provide cardiac risk factor management. 4. Enhance the psychosocial status of the patient. 5. Reconditioning enough to allow the patient to resume customary activities. 6. Control symptoms of cardiac disease Personal Goals: Initial Assessment: Improve energy level, Participate in home exercise program, Get back to work, or to resume activities faster, Improve muscle strength and endurance, Control risk factors (learn risk factor modification) Scale for measuring improvement of personal goals: Enter appropriate number in Comments. 2 = Unchanged. 3 = Slightly Better. 4 = Moderate Improvement. 5 = Met my Goal - Diagnosis & Disease Process Outcomes/Goals: Pt IDs own risk factors & lifestyle modifications by Session 10, Verbalizes symptoms of angina & response by session 3., Pt independently manages Plan/Interventions: Assist Pt to ID & engage in lifestyle modification to reduce CVD risk, Instruct on individual risk factors, Review symptoms of angina & emergency actions, Review secondary diagnosis & identify educational needs. - Safety Referral to Physical Therapy: No Referral to [facility] Case Management: No Fall Risk Assessed:: Yes Assistive Devices:: None, Wheelchair - WHEELCHAIR FOR LONG DISTANCE AMBULATION Exercise - Initial Assessment - Visit Date of Eval: 09/24/19 Mets: Pre-: >5 METS for 30 minutes by discharge - Physician Prescribed Exercise Modalities: Treadmill, Airdyne, NuStep Frequency: 3x/week for 12 weeks [36 sessions] Intensity: 60-80% of age predicted maximum heart rate reserve Current METSs:: 2 Target Heart Rate:: 88-114 - Outcomes & Goals Goals:: Verbalizes understanding of THR, RPE & goal METS by session 6, Documents in home exercise log/reports 30 min aerobic 5 day/wk by DC, Demonstrates accurate pulse taking by DC - Intervention & Plan Exercise Program Goals: Instruct on personal THR & RPE, Instruct on MET level & personal MET goal, Show patient to take own pulse /validate performance until accurate, Instruct on home exercise - Physical Activity Home Exercise Physical Activity - Home Exercise: Safe Exercise, Warm-up, Self-monitoring, Cool-Down, Home Exercise > 30 min Daily, Sitting Time <3 hours/daily - Outcomes & Goals Outcomes/Goals: Demonstrates correct Warm-up/exercise Cool-Down (S3) if = 2.5 METs, Verbalizes symptoms of exercise intolerance by Session 3 (S3), Demonstrate safe equipment use (S3) & follows exercise prescrition (6) - Intervention & Plan Plan/Intervention: Instruct warm-up & cool-down if exercising at > 2 METs, Instruct on symptoms of exercise intolerance & actions to take, Instruct & monitor on saf, Assess intial functional capacity & safety risk Nutrition - Initial Assessment - Program Goals Nutrition Program Goals: LDL <100 optimal. 100 - 129 Near optimal. 130 - 159 Borderline High. 160 - 189 High. Total Cholesterol <200 desirable. 200 - 239 Borderline High. >/= 240 High. HDL < 40 Low >/=60 High. Triglycerides <150 desirable. <199 optimal. VlDL 5 - 40. HgbA1C <7%. BMI <25 Patient has diagnosis of Hyperlipidemia (ICD E78)?: Yes - Visit Date of Assessment:: 09/24/19 Session #:: 0 - INITIAL EVAL - Cholesterol/Lipids Triglycerides (mg/dL): 0 - NOT AVAILABLE Determine presence & major risk factors that modify LDL goal: Hypertension or hypertensive medication, Family history of premature CHD in Male < 55 years: female <65 yearsFa, Age men > 45 years; women >/= 55 years Outcomes/Goals: Pt IDs own risk factors & lifestyle modifications by Session 10, Verbalizes symptoms of angina & response by session 3., Pt independently manages Intervention/Plan: Advocate for lipid panel cholesterol medication if applicable, Instruct on personal lipid levels & lipid goals/NCEP guidelines, Instruct on cholesterol - Diabetes (Other Core Measures) Diabetes Type: Diagnosis Type II ICD-10 E11 Fasting blood glucose:: 240 Hgb A1C (4.2 - 6.3): 7.4 Insulin dependent injection/pump?: Yes Non-Insulin Dependent?: Yes Do you monitor your blood sugar at home?: Yes Referral to Diabetic Clinic:: Yes Outcomes/Goals:: Able to state symptoms of, Able to state, Able to state Intervention/Plan:: Instruct on, Refer to, Instruct on - Weight Mgt (Other Care) Height: 5 ft 11 in Weight:: 174 lb BMI: 24.3 Diagnosis Overweight/Obesity BMI> 30% ICD-10 E66: No Diagnosis High BMI/Morbid Obesity BMI> 35% ICD-10 Z68: No Outcomes/Goals: Pt sets, maintains & shows weight loss goal & trend during rehab Intervention/Plan: Instruct on ideal BMI & set weight loss goal w/patient, Assist pt to ID & incorporate diet changes for weight loss by S9, Refer to Structured Weight Loss program as appropriate, Encourage goal of using 250-300dcal per session for weight loss - Healthy Eating Habits Will attend diet classes:: Yes Outcomes/Goals:: Consume diet rich in vegs,fruits,whole grain/high fiber,fish,lean meat, Limit sat/trans fats,cholesterol & added salts & sugars Intervention/Plan:: Assess current eating habits - Education Gave educational materials for:: Signs & symptoms of hypoglycemia, Signs & symptoms of hyperglycemia, Relate diabetes to coronary artery disease, Healthy eating Medical - Initial Assessment - Visit Date of Eval: 09/24/19 - Medication Compliance Preventative Medication(s):: Aspirin, Statin/lipid, Beta topher H/O mental health issues: depression, anxiety, or addiction?: No Doesn?t believe in the benefits of treatment?: No Believes medications are unnecessary or harmful?: No Has a concern about medication side effects?: No Outcomes/Goals: Verbalizes medications,desired effect & common side effects @ DC, Pt self-reports following medication regimen, Keeps card in wallet w/medications listed by DC Interventions/plans: Instruct on medication effects & side effects, Review medication list w/patient every two weeks, Instruct importance of taking meds as ordered & assist problem solving - Tobacco Use Tobacco Use: Non-smoker Do you use smokeless tobacco?: No - Hypertension Hypertension Diagnosis:: Hypertension ICD-10 I10 Resting Blood Pressure:: 88/80 [place] [employer] Hypertension Guidelines: [place] [employer] Hypertension Guidelines. Normal BP Less than 120/80. Elevated BP 120/80. Hypertension Stage 1: BP 130-139/80-89. Hypertesnion Stage 2: BP 140 or higher/90 or higher. Hypertension Crisis: BP higher than 180/120 Outcomes/Goals: Able to verbalize/achieve optimal blood pressure <130/80, Incorporates diet changes & exercise for blood pressure control by DC Interventions/plan: Instruct on optimal blood pressure, hypertension & medications, Instruct on effects of sodium, alcohol, stress, exercise &hypertension - Tobacco Cessation Referral Smoking Cessation Referral:: No Psychosocial - Initial Assess - VIsit Date of Eval: 09/24/19 Not Applicable: No History of previous Mental disease:: No - Target Goals Target Goals: Assess presence or absence of depression. Using a valid screening tool, maximizes coping skills. Positive support system - Psychosocial Test Tool Used:: Radha Bender QOL Cardiac, PHQ-9 Questionnaire phq-9 Severity: Severity. 1-4 Minimal Depression. 5-9 Mild Depression. 10-14 Moderate Depression. 15-19 Moderately Sever Depression. 20-27 Severe Depression. Rule: - Outcomes/Goals: See list Psychosocial Outcomes/Goals:: ID's personal stressors & 2 strategies to manage stress by discharge - Intervention/Plan: See List Interventions/Plan:: Assess stressors,coping strategies & signs of derpression on admission, Instruct/assist pt to develop coping & personal stress Mgt strategies, Instruct patient to recognize signs & symptoms of depression, Instruct patient to recog Patient Health Questionnaire Initial Assessment 1. Little interest or pleasure in doing things: Not at all 2. Feeling down, depressed, or hopeless: Not at all 3. Trouble falling or staying asleep, or sleeping too much: Not at all 4. Feeling tired or having little energy: Several days 5. Poor appetite or overeating: Not at all 6. Feeling bad about yourself -- or that you are a failure or have let yourself or your family down: Not at all 7. Trouble concentrating on things, such as reading the newspaper or watching television: Not at all 8. Moving or speaking so slowly that other people could have noticed. Or the opposite - being so fidgety or restless that you have been moving around a lot more than usual: Not at all 9. Thoughts that you would be better off , or of hurting yourself in some way: Not at all Total Score: 1 SORAIDA-Q SV Test - Statements CAD is a disease of the arteries in the heart: False Examples of risk factors for heart disease: True Angina is chest pain or discomfort: True The benefits of resistance training include: True Eating more meat and dairy products: False Anti-platelet medications such as aspirin are important: True The only effective way to manage stress: False An exercise warm-up slowly increases heart rate: True Prepared, processed foods usually have high sodium: True Depression is common after a heart attack: True The statin medications lower cholesterol: True To control blood pressure, lower the amount of sodium: True If someone gets chest discomfort during walking: False Transfats are partially hydrogenated vegetable oils: False Sleep apnea that is not treated increases the risk: True To control cholesterol, one should become a vegetarian: False Someone knows if he/she is exercising at the right level: True Diabetes cannot be prevented with exercise & health eating: False Stress is a large risk for heart attack: True A diet that can help lower blood pressure is rich in: True - Total Score Total Correct Responses: 18 Self-Efficacy Initial Assessment We would like to know how confident you are in doing certain activities. Please select your confidence level for:: Select your confidence level for the following using the scale 1-10 where 1 is not at all confident and 10 is totally confident. Your score is the average of all 6 responses. Fatigue: How confident are you that you can keep the fatigue caused by your disease from interfering with the things you want to do? Select Number: 5 Physical Discomfort or Pain: How confident are you that you can keep the physical discomfort or pain of your disease from interfering with the things you want to do? Select Number: 5 Emotional Distress: How confident are you that you can keep the emotional distress caused by your disease from interfering with the things you want to do? Select Number: 6 Other Symptoms or Health Problems: How confident are you that you can keep other symptoms or health problems from interfering with the things you want to do? Select Number: 5 Different Tasks and Activities: How confident are you that you can do the different tasks and activities needed to manage your health condition so as to reduce your need to see a doctor? Select Number: 6 Medication: How confident are you that you can do things other than just taking medication to reduce how much your illness affects your everyday life? Select Number: 6 Total Score:: 5 Nutrition Survey - Nutrition Survey Instructions Scoring Instructions: Scoring is as follows: Yes = 1 points. No = 0 point. Patient score that is >/=12 is considered to be at potential nutritional risk and could benefit from a referral to a registered dietitian. - Nutrition Survey Initial Have you lost >10 lbs over the past 2 months without trying?: Yes Are you following a special diet at home for diabetes, low fat, or low salt?: Yes Are you interested in meeting with a dietitian for help understanding your diet?: No Do you eat less than 3 meals a day?: No Do you eat fatty meats (rudolph, sausage, ribs, etc), fried foods, desserts, large amounts of salad dressings, margarine, butter, or cheese most days?: No Do you have food allergies? [Enter types in comment field]: No Do you eat in restaurants more than 3 times a week?: No Do you season food with salt, seasoning salt, or garlic salt?: No Do you used canned, boxed, frozen meals, or soups, seasoning packets?: No Total Score:: 2
--- NOTE | 2019-09-24 11:15 | CR.HP_ITS ---
CR - History & Physical - General Arrival date:: 09/24/19 Arrival time:: 11:15 Date of Referral:: 09/16/19 Date of CR Evaluation:: 09/24/19 Referring Physician: Dr. Lizett Bedolla Primary Diagnosis: HF, Dialated Cardiomyopathy - History of Present Cardiac Event Onset Date: Enter Onset Date of cardiac illnesses in Comment field below Current stable Angina Pectoris:: Yes - occas cp with exertion initially, goes away with rest. Acute Myocardial Infarction within 12 months:: Yes - Jul 2019 Coronary Artery Bypass Graft:: No Heart valve replacement or repair:: No PTCA or coronary stenting:: No Heart or Heart-Lung Transplant:: No Heart Failure EF <35%:: Yes - 15% on 09/02/19 Type of Symptoms:: sob, weakness. Interventions with present event:: heart cath, echo, CT scans Were there any complications?: CVA Aug 2019. - Medications Home Medications: Ambulatory Orders Medication Instructions Recorded Metformin HCl 500 mg PO BID 08/22/19 apixaban 5 mg tablet 5 mg PO BID #60 tab 09/01/19 atorvastatin 40 mg tablet 40 mg PO QHS #90 tab 09/01/19 aspirin 81 mg tablet,delayed 81 mg PO .COMPLEX #30 tab 09/02/19 release furosemide 20 mg tablet 20 mg PO .COMPLEX #0 tab 09/07/19 amiodarone 200 mg tablet 200 mg PO DAILY #1 tab 09/08/19 Losartan Potassium [Cozaar] 25 mg PO DAILY 09/15/19 metoprolol tartrate 25 mg tablet 12.5 mg PO BID #30 tab 09/16/19 - Allergies Allergies/Adverse Reactions: Allergies Sulfa (Sulfonamide Antibiotics) Allergy (Verified 09/15/19 08:49) Other carvedilol [From Coreg] Adverse Reaction (Intermediate, Verified 09/15/19 08:49) dizziness, poor balance, weakness - Sleep Disorder Evaluation Hx of Sleep Apnea: No Do you snore loudly (louder than talking or can be heard through closed doors)?: No Do you often feel tired/ fatigued/ sleepy during daytime?: Yes Has anyone observed you stop breathing during sleep?: No History of Hypertension (for STOP score): Yes STOP Results: Positive Advanced Directives - Advanced Directives Power of Ripper Operator: No Living Will: No Advance Directives Information Provided: Yes Advance Directives on File: No DNR Order?:: No Past Medical History - Past Medical Illness Medical History: Past Medical History (Last Reviewed 09/01/19 @ 15:44 by Norah Edwards) Non-rheumatic tricuspid valve insufficiency (Chronic) I36.1 Mild to moderate per echo 08/17/19 @ [facility]: Mild per echo 08/24/19 @ [facility] Nonrheumatic mitral valve regurgitation (Chronic) I34.0 Mild to moderate per echo 08/17/19 @ [facility]: Mild per echo 08/24/19 @ [facility] CVA (cerebral vascular accident) (Chronic) I63.9 Atrial fibrillation (Chronic) I48.91 CHF (congestive heart failure) (Chronic) I50.9 EF 15% per echo 08/23/2019 [facility] Diastolic dysfunction (Acute) I51.89 EF 15% per echo 08/23/2019 [facility] Dilated cardiomyopathy (Acute) I42.0 EF 15% per echo 08/23/2019 [facility](20% per echo done 08/17/19 @ [facility]). Essential hypertension (Chronic) I10 Hyperlipidemia (Chronic) E78.5 Diabetes mellitus, type II (Chronic) E11.9 - Past Surgical History Surgical History: Past Surgical History (Last Updated 09/16/19 @ 17:16 by Norah Edwards) History of left heart catheterization (Chronic) Onset Date: 09/16/19 Z98.890 Non obstructive coronary arteries; Global LV systolic dysfunction- Severe; LVEF: by LV gram 10-15 % Elevated Left Ventricular End Diastolic Pressure; Cardiomyopathy: Dilated H/O hernia repair Z98.890, Z87.19 Surgical History: herniorrhaphy, tonsillectomy, - - Right inguinal repair x2, tonsillectomy. 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 Left click = Reports ([place]) Review of Present Symptoms: Reports: Shortness of Breath with Exertion, Angina - some cp at first, relieved with rest., Dizziness/Lightheadedness - occasionally, Fatigue - some, Appetite - Normal, Appetite - Special Diet - diabetic cardiac, Sleep - Normal. Denies: Shortness of Breath at Rest, PVD, Operative Discomfort, Wound Healing, Heart Arrhythmia/Irregularities, Sexual Changes - Pain Is Patient Pain Free?: Yes Risk Factor Assessment - Vital Signs Pulse Ox: 98 - Pulse Pulse Rate: 62 Pulse Rhythm: Regular - Hypertension How long have you been treated?: 1 month On medication(s)?: yes Blood Pressure Sitting - Right Arm: 108/60 Blood Pressure Sitting - Left Arm: 110/64 - Diabetes Diabetic History: Type II, Medication Dependent Nutrition Referral for Diabetes: Yes - Obesity Height: 5 ft 11 in Weight:: 174 lb Weight in Pounds: 174.0 lbs Body Mass Index (BMI): 24.3 Nutritional Referral for Obesity: No - Physical Inactivity Physical Inactivity: Recreational activity - Risk Stratification Risk Guidelines: Lowest Risk: Risk Factor for Dyslipidemia, Risk Factor for Obesity, Risk Factor for Hypertension, Risk Factor for Sedentary Lifestyle, Risk Factor for Depression, Highest Risk: Risk Factor for Smoking, Risk Factor for Diabetes - For Smoking Smoking Risk Guidelines: Smoking Low Risk: None or quit greater than 6 months ago. Smoking Moderate Risk: Smoker or quit 6 months or less ago. Smoking High Risk: Smoker - For Dyslipidemia Dyslipidemia Risk Guidelines: Low Risk: Moderate Risk: High Risk: 15-25% fat 25.1-29% fat >/= 30% fat. <7% sat fat 7-9% sat fat >9% sat fat. <150 mg chol 150-299 mg chol >/= 300 mg chol. LDL <100 LDL 100-129 LDL >/= 130. Chol/HDL ratio <5.0 Chol/HDL ratio 5.0-6.0 Chol/HDL ratio >6.0. Triglycerides <100 Triglycerides 100-149 Triglycerides >/= 150 - For Diabetes Mellitus Diabetes Risk Guidelines: Diabetes Low Risk: HgA1c <6.5% and/or FBG <120. Diabetes Moderate Risk: HgA1c 6.6-7.9% and/or FBG 120-180. Diabetes High Risk: HgA1c >/= 8% and/or FBG >180 - For Obesity/Overweight Obesity/Overweight Risk Guidelines: Obesity Low Risk: BMI <25.0. Obesity Moderate Risk: BMI 25-29.9. Obesity High Risk: BMI >/= 30.0 - For Hypertension Hypertension Risk Guidelines: Hypertension Low Risk: Systolic <120 and Diastolic <80. Hypertension Moderate Risk: Systolic 120-139 and Diastolic 80-89. Hypertension High Risk: Systolic >/= 140 and Diastolic >/= 90 - For Sedentary Lifestyle Sedentary Lifestyle Risk Guidelines: Sedentary Lifestyle Low Risk: >/= 1,500 kcal/week. Sedentary Lifestyle Moderate Risk: 700-1,499 kcal/week. Sedentary Lifestyle High Risk: < 700 kcal/week - For Depression Depression Risk Guidelines: Depression Low Risk: Not clinically depressed. Depression Moderate Risk: Mildly depressed. Depression High Risk: Clinically depressed - Family History Family History: Family History (Last Reviewed 09/01/19 @ 15:44 by Norah Edwards) Mother Congestive heart failure Viral cardiomyopathy Father Lung cancer Brain cancer Motivation - Motivation to Participate On a scale of 1 to 10, how prepared are you to commit to attending program?: 8
[2019-09-24 11:17] VITALS: BP 88/80; BMI 24.3
[2019-09-24 11:45] VITALS: BP 108/60; BP 110/64; PULSE 62; O2SAT 98; BMI 24.3
== END | disposition home or self-care (01) ==
LOC: CR 09:35
PROVIDERS: PCP Internal Medicine; Referring Provider Internal Medicine Cardiovascular Disease; Visit Provider Internal Medicine Cardiovascular Disease
DX: E78.5 Hyperlipidemia, unspecified (principal); I42.0 Dilated cardiomyopathy
CPT/HCPCS: 36415; 80061; 80076

== ENCOUNTER 2019-10-16 10:15 | Outpatient (RCR) | payer MEDICARE, SELFPAY ==
[2019-09-15 08:44] VITALS: BMI 24.3
== END 2019-10-17 23:59 ==
LOC: CR 10:15
PROVIDERS: PCP Internal Medicine; Referring Provider Internal Medicine Cardiovascular Disease; Visit Provider Internal Medicine Cardiovascular Disease
DX: I50.9 Heart failure, unspecified (principal); I42.0 Dilated cardiomyopathy; R09.89 Other specified symptoms and signs involving the circulatory and respiratory systems
CPT/HCPCS: 93798

== ENCOUNTER 2019-11-06 10:15 | Outpatient (RCR) | payer MEDICARE, SELFPAY ==
[2019-09-24 11:17] VITALS: BMI 24.3
[2019-09-30 09:50] VITALS: BMI 24.3
== END 2019-11-17 23:59 ==
LOC: CR 10:15
PROVIDERS: PCP Internal Medicine; Referring Provider Internal Medicine Cardiovascular Disease; Visit Provider Internal Medicine Cardiovascular Disease
DX: I50.9 Heart failure, unspecified (principal); I42.0 Dilated cardiomyopathy; R09.89 Other specified symptoms and signs involving the circulatory and respiratory systems
CPT/HCPCS: 93798

== ENCOUNTER → 2020-01-22 | Outpatient (CLI) | payer MEDICARE, SELFPAY ==
[2019-09-24 11:17] VITALS: BMI 24.3
[2019-09-30 09:50] VITALS: BMI 24.3
--- NOTE | 2020-01-22 08:38 | ECHOCS_ITS ---
Reason For Study: CHF Procedure This was a 2D Doppler, Color Flow transthoracic echocardiogram. The study was technically difficult. Contrast injection was performed. Exam performed in department. Left Ventricle Moderately dilated left ventricle. The estimated ejection fraction is 40 %. Septal motion consistent with IVCD. Stage 1 diastolic dysfunction. There is moderate global hypokinesis of the left ventricle. Right Ventricle Normal size and thickness. Normal systolic function. Atria Normal left atrium. Normal right atrium. Normal atrial septum. Mitral Valve The mitral valve is structurally normal. No prolapse or stenosis seen. Mild (1+) eccentric mitral valve insufficiency. Tricuspid Valve Normal tricuspid valve. Unable to estimate RV systolic pressure due to insufficient tricuspid regurgitant envelope. Aortic Valve Normal aortic valve. Trisinus/trileaflet aortic valve. Pulmonic Valve Normal pulmonic valve. Great Vessels Normal aortic root. Normal arch. Normal inferior vena cava. Pericardium/Pleural No pericardial effusion. Medication 22 gauge I.V. with prn adaptor inserted into right arm. Diluted definity 2.0ml given slow IV push to enhance endocardial definition. MMode/2D Measurements & Calculations LVIDd: 5.6 cm IVSd: 0.80 cm Ao root diam: 3.2 cm LVIDs: 4.3 cm LVPWd: 0.97 cm RVDd: 3.0 cm FS: 22.4 % LAV(MOD-bp): 49.2 ml LVAd ap4: 41.8 cm2 SV(MOD-sp4): 61.4 ml LAV(MOD-bp) Indexed: 23.8 ml/m2 EDV(MOD-sp4): 162.3 ml LAV(MOD-sp2): 53.0 ml EDV(sp4-el): 166.6 ml LAV(MOD-sp4): 44.1 ml LVAs ap4: 31.0 cm2 ESV(MOD-sp4): 101.0 ml ESV(sp4-el): 103.6 ml EF(MOD-sp4): 37.8 % EF(sp4-el): 37.8 % SV(sp4-el): 63.0 ml LA A4 area: 17.0 cm2 LA dimension(2D): 4.3 cm RA A4 area: 10.6 cm2 Time Measurements MV dec time: 0.35 sec Doppler Measurements & Calculations MV E max sha: 58.4 cm/sec Lat Peak E' Sha: 5.6 cm/sec Med Peak E' Sha: 4.6 cm/sec MV A max sha: 89.3 cm/sec E/E' lat: 10.4 E/E' med: 12.6 MV E/A: 0.65 PA V2 max: 122.1 cm/sec Interpretation Summary Moderately dilated left ventricle. The estimated ejection fraction is 40 %. Stage 1 diastolic dysfunction. There is moderate global hypokinesis of the left ventricle. Mild (1+) eccentric mitral valve insufficiency. Unable to estimate RV systolic pressure due to insufficient tricuspid regurgitant envelope. Compared to echo report dated 08/24/2019, LV function has improved from 15% to 40%. Ordering Physician: Leon Bedolla Referring Physician: MUNA SILVERIO Performed By: Leyla Saeed, JOBY, RVT
== END | disposition home or self-care (01) ==
LOC: CVS 08:37
PROVIDERS: PCP Internal Medicine; Referring Provider Internal Medicine Cardiovascular Disease; Visit Provider Internal Medicine Cardiovascular Disease
DX: I42.0 Dilated cardiomyopathy (principal); I48.91 Unspecified atrial fibrillation; I63.9 Cerebral infarction, unspecified; I34.0 Nonrheumatic mitral (valve) insufficiency; I36.1 Nonrheumatic tricuspid (valve) insufficiency; I11.0 Hypertensive heart disease with heart failure; I50.9 Heart failure, unspecified
CPT/HCPCS: 93306; Q9957; A4216; C8929

== ENCOUNTER → 2020-03-25 07:22 | Outpatient (CLI) | payer MEDICARE, SELFPAY ==
[2019-09-24 11:17] VITALS: BMI 24.3
[2020-02-25 15:39] VITALS: BMI 26.7
[2020-03-25 08:25] LABS: Hemoglobin A1c 6.8 % (3.8-5.6)
[2020-03-25 08:37] LABS: AST(SGOT) 17 U/L (15-37); Alanine Aminotransfer ALT/SGPT 37 U/L (16-61); Albumin, Serum 3.6 g/dL (3.2-5.0); Alkaline Phosphatase 103 U/L (45-117); Bilirubin, Direct 0.16 mg/dL (0.00-0.30); Cholesterol 96 mg/dL (200); Globulin 3.4 g/dL (2.2-4.2); High Density Lipoprotein 30 mg/dL; T4 Free Direct 1.38 ng/dL (0.76-1.46); Thyroid Stim Hormone (TSH) 4.81 uIU/mL (0.358-3.74); Triglycerides 95 mg/dL; Very Low Density Lipoprotein 19 mg/dL (5-40)
== END ==
PROVIDERS: PCP Internal Medicine; Visit Provider Internal Medicine Cardiovascular Disease
DX: I48.91 Unspecified atrial fibrillation (principal); E11.9 Type 2 diabetes mellitus without complications; E78.5 Hyperlipidemia, unspecified
CPT/HCPCS: 36415; 80061; 80076; 83036; 84439; 84443

== ENCOUNTER → 2020-04-07 | Outpatient (CLI) | payer MEDICARE, SELFPAY ==
[2019-09-24 11:17] VITALS: BMI 24.3
[2020-02-25 15:39] VITALS: BMI 26.7
--- NOTE | 2020-04-07 14:10 | PFTCOMP ---
COMPLETE PULMONARY FUNCTION TEST INTERPRETATION Brief HPI: Patient is a 69 year old male, currently under the care of Dr. Bedolla, who presents to [facility] for complete pulmonary function tests secondary to diagnosis of dyspnea. Respiratory therapist reports good effort and reproducible results. Interpretation: Forced expiration spirometry shows no large airways obstructive ventilatory defect with an FEV1 of 74% predicted. There is no significant bronchodilator response by strict ATS criteria. Spirograms are of good quality and plateau normally. The respiratory flow volume loop shows a normal pattern. Lung volumes by body plethysmography show a normal total lung capacity at 6.3 L, 93% predicted. All other lung volumes are within normal limits. Diffusion capacity by carbon monoxide is at the lower limit of normal at 68% predicted. The airway resistance is slightly elevated. No previous pulmonary function tests were available for review. Impression: Grossly normal pulmonary function test, but diffusing capacity is at the lower limit of normal, so an early pulmonary vascular disorder cannot be excluded.
== END | disposition home or self-care (01) ==
LOC: PSN 07:11
PROVIDERS: PCP Internal Medicine; Referring Provider Internal Medicine Cardiovascular Disease; Visit Provider Internal Medicine Cardiovascular Disease
DX: I48.91 Unspecified atrial fibrillation (principal)
CPT/HCPCS: 94060; 94726; 94729

== ENCOUNTER → 2020-05-10 | Outpatient (CLI) | payer MEDICARE, SELFPAY ==
[2019-09-24 11:17] VITALS: BMI 24.3
[2020-02-25 15:39] VITALS: BMI 26.7
[2020-05-10 10:44] LABS: Thyroid Stim Hormone (TSH) 3.21 uIU/mL (0.358-3.74)
== END | disposition home or self-care (01) ==
LOC: LAB 08:45
PROVIDERS: PCP Internal Medicine; Referring Provider Physician Assistant Medical; Visit Provider Physician Assistant Medical
DX: E03.9 Hypothyroidism, unspecified (principal); Z79.899 Other long term (current) drug therapy
CPT/HCPCS: 36415; 84443

== ENCOUNTER → 2021-02-17 08:19 | Outpatient (CLI) | payer MEDICARE, SELFPAY ==
[2019-09-24 11:17] VITALS: BMI 24.3
[2020-08-22 14:41] VITALS: BMI 27.3
[2021-02-17 09:29] LABS: Hemoglobin A1c 8.3 % (3.8-5.6)
[2021-02-17 10:08] LABS: AST(SGOT) 11 U/L (15-37); Alanine Aminotransfer ALT/SGPT 27 U/L (16-61); Albumin, Serum 3.6 g/dL (3.2-5.0); Alkaline Phosphatase 104 U/L (45-117); Bilirubin, Direct 0.14 mg/dL (0.00-0.30); Cholesterol 121 mg/dL (200); Free T3 2.3 pg/mL (2.18-3.98); Globulin 3.3 g/dL (2.2-4.2); High Density Lipoprotein 28 mg/dL; Protein, Total 6.9 g/dL (6.4-8.2); T4 Free Direct 1.37 ng/dL (0.76-1.46); Thyroid Stim Hormone (TSH) 3.21 uIU/mL (0.358-3.74); Triglycerides 112 mg/dL; Very Low Density Lipoprotein 22 mg/dL (5-40)
== END ==
PROVIDERS: PCP Internal Medicine; Referring Provider Physician Assistant Medical; Visit Provider Physician Assistant Medical
DX: I42.0 Dilated cardiomyopathy (principal); I48.91 Unspecified atrial fibrillation; I11.0 Hypertensive heart disease with heart failure; I50.9 Heart failure, unspecified; I63.9 Cerebral infarction, unspecified; E11.9 Type 2 diabetes mellitus without complications
CPT/HCPCS: 36415; 80061; 80076; 83036; 84439; 84443; 84481

== ENCOUNTER → 2021-02-27 10:50 | Outpatient (CLI) | payer MEDICARE, SELFPAY ==
[2019-09-24 11:17] VITALS: BMI 24.3
[2021-02-23 09:49] VITALS: BMI 27.6
--- NOTE | 2021-02-27 10:55 | RAD_ITS ---
STUDY: X-RAY CHEST REASON FOR EXAM: Male, 70 years old. PAF TECHNIQUE: PA and lateral views of the chest. COMPARISON: Comparison is made with prior study dated 08/22/2019. FINDINGS: Hyperinflation. Minimal increased linear markings in the lingular segment of the left upper lobe adjacent to the cardiac border suggestive of mild scarring. There is no demonstrated pleural abnormality. Normal size heart. Normal mediastinum and maría elena. Normal visualized pulmonary arteries. There is atherosclerotic calcification of the aortic arch with tortuosity. There is demineralization of the osseous structures. Normal visualized ribs, clavicles, and shoulders. There is no demonstrated abnormality of the visualized soft tissue structures of the upper abdomen. RAD/Chest PA and Lateral IMPRESSION: Hyperinflation. Findings suggestive of linear scarring at the left lung base. Electronically Signed: Levy Dasilva MD at 11:15 EDT , Service support ,
== END ==
PROVIDERS: PCP Internal Medicine; Referring Provider Physician Assistant Medical; Visit Provider Physician Assistant Medical
DX: I48.0 Paroxysmal atrial fibrillation (principal)
CPT/HCPCS: 71046

== ENCOUNTER → 2021-03-16 08:25 | Outpatient (CLI) | payer MEDICARE, SELFPAY ==
[2019-09-24 11:17] VITALS: BMI 24.3
[2021-02-23 09:49] VITALS: BMI 27.6
--- NOTE | 2021-03-16 13:14 | PFT ---
INTRODUCTION: The patient is a 70-year-old male that presents for pulmonary function studies secondary to a diagnosis of atrial fibrillation. Respiratory therapy reported good patient effort. Bronchodilators were used during testing. INTERPRETATION: Forced expiration spirometry demonstrates no evidence of a large airways obstructive ventilatory defect. There was no significant response to aerosolized bronchodilators. Spirograms are of good quality and plateau normally. Body plethysmography was performed and revealed a total lung capacity at the lower limits of normal. Diffusing capacity by single breath CO is reduced at 61% of predicted. IMPRESSION: Isolated mild reduction in diffusing capacity. Total lung capacity is at the lower limits of normal.
== END ==
PROVIDERS: PCP Internal Medicine; Referring Provider Physician Assistant Medical; Visit Provider Physician Assistant Medical
DX: I48.0 Paroxysmal atrial fibrillation (principal)
CPT/HCPCS: 94060; 94726; 94729

== ENCOUNTER 2021-10-05 08:19 | Outpatient (CLI) | payer MEDICARE, SELFPAY ==
[2019-09-24 11:17] VITALS: BMI 24.3
[2021-10-05 09:58] LABS: Hemoglobin A1c 7.2 % (3.8-5.6)
== END 2021-10-05 23:59 | disposition home or self-care (01) ==
LOC: LAB 08:21
PROVIDERS: PCP Internal Medicine; Referring Provider Internal Medicine; Visit Provider Internal Medicine
DX: E11.9 Type 2 diabetes mellitus without complications (principal)
CPT/HCPCS: 36415; 83036

== ENCOUNTER 2021-11-16 02:31 | Emergency (ER) | payer MEDICARE, SELFPAY ==
[2019-09-24 11:17] VITALS: BMI 24.3
[2021-11-16 02:32] VITALS: BP 164/90; PULSE 90; RESP 18; TEMP 36.8; O2SAT 96; BMI 27.4
--- NOTE | 2021-11-16 03:00 | EX.ED.DYSGE1 ---
HPI History of Present Illness Chief Complaint: General Illness Informant: patient Onset/Context/Timing Onset: Days (2) Context: Gradual Onset Timing: Continuous Quality: Dull Location: Occiput Worsened by: Laying flat Relieved by: Ambulating Narrative Narrative: Patient presents with headache, sore throat, and rhinorrhea that have been getting worse over the past 2 days. Patient states his headache is over the occipital area. Patient describes it as dull. Patient states it is worse whenever he lays down and better when he is ambulating. Patient noticed that his blood pressure was elevated tonight. Patient took an extra half tab of his metoprolol tonight. Patient denies any shortness of breath. Patient denies any cough. Patient denies any nausea or vomiting. [facility] Medical History Atrial fibrillation CHF (congestive heart failure) CVA (cerebral vascular accident) Diabetes mellitus, type II Diastolic dysfunction Dilated cardiomyopathy Essential hypertension Hyperlipidemia Non-rheumatic tricuspid valve insufficiency Nonrheumatic mitral valve regurgitation Paroxysmal atrial fibrillation Home Medications metformin 1,000 mg tablet 500 mg PO BID tab 02/23/21 [History Last Taken Unknown] amiodarone 200 mg tablet 100 mg PO DAILY #45 tab 09/18/21 [Rx Last Taken Unknown] apixaban 5 mg tablet 5 mg PO BID #180 tab 09/18/21 [Rx Last Taken Unknown] aspirin 81 mg tablet,delayed release 81 mg PO DAILY #90 tab 09/18/21 [Rx Last Taken Unknown] atorvastatin 40 mg tablet 40 mg PO QHS #90 tab 09/18/21 [Rx Last Taken Unknown] furosemide 20 mg tablet 20 mg PO .COMPLEX #135 tab 09/18/21 [Rx Last Taken Unknown] losartan 25 mg tablet 25 mg PO BID #180 tab 09/18/21 [Rx Last Taken Unknown] metoprolol tartrate 25 mg tablet 12.5 mg PO BID #90 tab 09/18/21 [Rx Last Taken Unknown] Allergy/AdvReac Type Severity Reaction Status Date / Time Sulfa (Sulfonamide Allergy Other Verified 11/16/21 02:35 Antibiotics) carvedilol [From Coreg] AdvReac Intermediate dizziness, Verified 11/16/21 02:35 poor balance, weakness Family History Mother Congestive heart failure Viral cardiomyopathy Father Lung cancer Brain cancer Surgical History H/O hernia repair History of left heart catheterization (09/16/19) Social History Smoking Status: Former smoker how long ago did patient quit smokin year ago alcohol intake: never substance use type: does not use caffeine: Yes Type: tea ROS ROS ED Constitutional Constitutional ED: Denies chills or fever(s) Eyes Eyes: Denies blurry vision or change in vision ENT ENT ED: Reports rhinorrhea and sore throat Cardiovascular Cardiovascular: Denies chest pain or palpitations Respiratory/Chest Respiratory/Chest: Denies cough or dyspnea Gastrointestinal Gastrointestinal: Denies nausea or vomiting Genitourinary Genitourinary ED: Denies dysuria or hematuria Musculoskeletal Musculoskeletal: Denies back pain or neck pain Integumentary Denies abscess or rash Neurologic Neurologic: Reports headache(s); Denies weakness Allergic/Immunologic Allergic/Immunologic ED: Denies mouth swelling or urticaria EXAM Physical Exam Const Vital Signs: 11/16/21 02:32 Temperature 98.3 F Temperature Source Temporal Pulse Rate 90 Respiratory Rate 18 Blood Pressure 164/90 H Blood Pressure Mean 114 Pulse Ox 96 Oxygen Delivery Method Room Air Positive well nourished and well developed General Appearance ED: well developed HEENT Reports moist mucous membranes Neck supple and no JVD Resp normal respiratory effort and clear to auscultation bilaterally Cardio regular rate, regular rhythm and no murmurs GI normal to inspection, nondistended, normoactive bowel sounds and non-tender Palpation: soft Extremity normal to inspection General Extremety ED: Negative for edema or tenderness General Extremity: Negative for edema Neuro oriented x3, CN's II-XII intact bilaterally and no sensory deficits noted Sensorium / Orientation: alert Motor Exam: strength 5/5 throughout Psych mental status grossly normal Skin no rashes or lesions noted MDM MDM MDM Narrative Medical decision making narrative: CBC and comprehensive metabolic profile were obtained. Creatinine was slightly elevated at 1.78 BUN was 22. These are consistent with prior results. PT was 17.9 with an INR of 1.6. PTT was 33.8. High-sensitivity troponin was normal at 7. CT scan of the brain was obtained. There is no acute intracranial abnormality noted. This was interpreted by the radiologist and reviewed by myself. Portable 1 view chest x-ray was obtained. On my interpretation, lung younger are clear. There is normal cardiac silhouette. Bony thorax is normal. There is no acute process noted. Radiologist also interpreted the x-ray and agrees. Patient was advised of his findings. Patient's blood pressure remained in the 150s over 90s. Patient was instructed to follow-up with his primary care physician in 3 to 5 days. Patient was instructed to take Tylenol as needed for his headache. Patient was instructed return if worse in any way. Patient understood and was agreeable with the plan. All questions were answered. Lab Data Labs: Laboratory Results - last 24 hr 11/16/21 11/16/21 11/16/21 03:00 03:00 03:10 WBC 10.2 RBC 4.91 Hgb 14.1 Hct 42.3 MCV 86.2 MCH 28.7 MCHC 33.3 RDW Std Deviation 42.0 RDW Coeff of Helene 13.4 Plt Count 223 MPV 10.3 Immature Gran % (Auto) 0.400 Neut % (Auto) 79.5 H Lymph % (Auto) 7.6 L Hendry % (Auto) 10.9 H Eos % (Auto) 1.3 Baso % (Auto) 0.3 Absolute Neuts (auto) 8.1 H Absolute Lymphs (auto) 0.77 L Nucleated RBC % 0 PT 17.9 H INR 1.6 APTT 33.8 Sodium 138 Potassium 3.9 Chloride 105 Carbon Dioxide 27.0 Anion Gap 6 BUN 22 H Creatinine 1.78 H Estim Creat Clear Calc 41.13 Est GFR (MDRD) Af Amer 49 L Est GFR (MDRD) Non-Af 40 L BUN/Creatinine Ratio 12.4 Glucose 178 H Calcium 8.4 L Total Bilirubin 0.50 AST 9 L ALT 21 Alkaline Phosphatase 105 Troponin I High Sens 7 Total Protein 7.5 Albumin 3.8 Globulin 3.7 Albumin/Globulin Ratio 1.0 Radiography Chest X-Ray - ED: 1 View, Read by ED Physician, Read by Radiologist and No Acute Disease Diagnostic Testing: Clinical Impression(s) from Imaging Studies Brain CT 11/16/21 03:04 IMPRESSION: 1. Small old areas of encephalomalacia left parietal cortex. 2. No acute intracranial abnormality. 3. Mild mucosal thickening bilateral maxillary and ethmoid sinuses. Electronically Signed: Demetrio Kimble MD at 3:48 EDT , Chest X-Ray 11/16/21 03:04 IMPRESSION: No acute disease or change. Electronically Signed: Demetrio Kimble MD at 3:25 EDT , Discharge Plan Triage Chief Complaint: General Illness ED Provider: Taurus Cabrera Dx/Rx/DC Orders Clinical Impression: Headache, Essential hypertension Instructions: ED Hypertension, Established, ED Pain, Acute, Uncertain Cause Prescriptions: No Action metformin 1,000 mg tablet 500 mg PO BID RF: 0 amiodarone 200 mg tablet 100 mg PO DAILY Qty: 45 RF: 3 apixaban 5 mg tablet 5 mg PO BID Qty: 180 RF: 3 atorvastatin 40 mg tablet 40 mg PO QHS Qty: 90 RF: 3 furosemide 20 mg tablet 20 mg PO .COMPLEX Qty: 135 RF: 3 metoprolol tartrate 25 mg tablet 12.5 mg PO BID Qty: 90 RF: 3 losartan 25 mg tablet 25 mg PO BID Qty: 180 RF: 3 aspirin [Adult Aspirin Regimen] 81 mg tablet,delayed release (DR/EC) 81 mg PO DAILY Qty: 90 RF: 3 Primary Care Provider: Danna Alcantar Referrals: Danna Alcantar DO [Primary Care Provider] - 3-5 Days Disposition Disposition: Home, Self Care
--- NOTE | 2021-11-16 03:04 | RAD_ITS ---
EXAM: XR CHEST, 1 VIEW CLINICAL INDICATION: Cough TECHNIQUE: Frontal view of the chest. This report was created using [employer] report generation technology. COMPARISON: 02/27/2021. FINDINGS: LUNGS AND PLEURAL SPACES: Unremarkable. No consolidation or edema. No pneumothorax. No effusion. HEART: Unremarkable. Cardiac silhouette not enlarged. MEDIASTINUM: Central airways and mediastinal contour are unremarkable. BONES/JOINTS: Unremarkable. SOFT TISSUES: Unremarkable. RAD/Chest 1 View (Portable) IMPRESSION: No acute disease or change. Electronically Signed: Demetrio Kimble MD at 3:25 EDT ,
--- NOTE | 2021-11-16 03:04 | CT_ITS ---
EXAM: CT HEAD WITHOUT INTRAVENOUS CONTRAST CLINICAL INDICATION: Headache TECHNIQUE: Multiple axial images were obtained of the head without intravenous contrast. This CT exam was performed using one or more of the following dose reduction techniques: automated exposure control, adjustment of the mA and/or kV according to patient size, and/or use of iterative reconstruction technique. This report was created using [employer] report generation technology. COMPARISON: None. FINDINGS: BRAIN AND EXTRA-AXIAL SPACES: Small old areas of encephalomalacia left parietal cortex. No intra- or extra-axial hemorrhage. No evidence of acute infarct. No intracranial mass or mass effect. There is preservation of the tesfaye/white matter interface. Posterior fossa structures are unremarkable. Ventricles are appropriate for age. No hydrocephalus. Basal cisterns are patent. BONES/JOINTS: Unremarkable. No discrete lytic or blastic abnormalities. SINUSES: Mild mucosal thickening bilateral maxillary and ethmoid sinuses. MASTOID AIR CELLS: Unremarkable. Clear. ORBITS: Visualized globes, extraocular muscles, optic nerves and retrobulbar fat appear unremarkable. CT/Brain/Head without Contrast IMPRESSION: 1. Small old areas of encephalomalacia left parietal cortex. 2. No acute intracranial abnormality. 3. Mild mucosal thickening bilateral maxillary and ethmoid sinuses. Electronically Signed: Demetrio Kimble MD at 3:48 EDT ,
--- NOTE | 2021-11-16 03:05 | EKG12_ITS ---
Test Reason : DYSRHYTHMIA Blood Pressure : / mmHG Vent. Rate : 087 BPM Atrial Rate : 087 BPM P-R Int : 174 ms QRS Dur : 150 ms QT Int : 446 ms P-R-T Axes : 062 009 015 degrees QTc Int : 536 ms Normal sinus rhythm Right bundle branch block Abnormal ECG Confirmed by MARIANNE WEAVER, ANDREA ([id number]), video news editor ANGELIQUE FARIAS ([id number]) on 11/17/2021 2:16:21 PM Referred By: EMERSON Confirmed By:JEFF LOPES MD
[2021-11-16 03:19] LABS: Absolute Lymphocyte Count 0.77 X10^3/uL (0.83-4.51); Absolute Neutrophil Count 8.1 X10^3/uL (2.0-7.7); Basophil# 0.03 X10^3/uL; Basophil% 0.3 % (0-1); Eosinophil# 0.13 X10^3/uL; Eosinophils% 1.3 % (0-5); Hematocrit 42.3 % (40-54); Hemoglobin 14.1 g/dL (13.0-16.5); Lymphocyte # 0.77 X10^3/ul (0.83-4.51); Lymphocyte % 7.6 % (19-41); Mean Corp Hgb Conc 33.3 g/dL (32-36); Mean Corpuscular Hgb 28.7 pg (27.0-32.0); Mean Corpuscular Volume 86.2 fL (80-94); Mean Platelet Vol. 10.3 fl (6.2-12.0); Monocyte# 1.11 X10^3/uL; Monocyte% 10.9 % (0-10); NRBC Flagged by Analyzer 0 % (0-5); Neutrophil % 79.5 % (47-70); Platelet Count 223 K/mm3 (150-450); RBC Distribution Width CV 13.4 % (11.6-14.6); Red Blood Count 4.91 M/mm3 (4.6-6.2); White Blood Count 10.2 K/mm3 (4.4-11.0)
[2021-11-16 03:28] LABS: International Normalized Ratio 1.6; Prothrombin Time (Protime)PT. 17.9 SECONDS (11.7-14.9)
[2021-11-16 03:30] LABS: Partial Thromboplast Time 33.8 Seconds (24.1-36.2)
[2021-11-16 03:45] LABS: AST(SGOT) 9 U/L (15-37); Alanine Aminotransfer ALT/SGPT 21 U/L (16-61); Albumin, Serum 3.8 g/dL (3.2-5.0); Alkaline Phosphatase 105 U/L (45-117); Anion Gap 6 (5-15); BUN 22 mg/dL (7-18); BUN/Creat Ratio 12.4 RATIO (10-20); Calcium,Total 8.4 mg/dL (8.5-10.1); Chloride 105 mmol/L (98-107); Creatinine, Serum 1.78 mg/dL (0.70-1.30); EST Glomerular Filtration Rate 40 mL/min (>60); Est Glom Filt Rate - Afr Amer 49 mL/min (>60); Estimated Creatinine Clearance 41.13 ml/min; Globulin 3.7 g/dL (2.2-4.2); Glucose 178 mg/dL (74-106); Potassium 3.9 mmol/L (3.5-5.1); Protein, Total 7.5 g/dL (6.4-8.2); Sodium Level 138 mmol/L (136-145); Troponin-I HS 7 pg/mL (3.0-78.0)
[2021-11-16] MEDS: Acetaminophen 500 MG Tablet 1000 MG PO (04:32)
[2021-11-16 04:39] VITALS: BP 153/92; PULSE 92; RESP 18; O2SAT 95
== END 2021-11-16 04:39 | disposition home or self-care (01) ==
PROVIDERS: Emergency Provider Emergency Medicine; PCP Internal Medicine; Visit Provider Emergency Medicine
DX: I11.0 Hypertensive heart disease with heart failure (principal); I42.0 Dilated cardiomyopathy; I50.9 Heart failure, unspecified; I48.0 Paroxysmal atrial fibrillation; E11.9 Type 2 diabetes mellitus without complications; R51.9 Headache, unspecified; J02.9 Acute pharyngitis, unspecified; Z87.891 Personal history of nicotine dependence; E78.5 Hyperlipidemia, unspecified; Z86.73 Personal history of transient ischemic attack (TIA), and cerebral infarction without residual deficits; Z79.899 Other long term (current) drug therapy; Z79.82 Long term (current) use of aspirin; Z79.01 Long term (current) use of anticoagulants; Z79.84 Long term (current) use of oral hypoglycemic drugs
CPT/HCPCS: 70450; 71045; 80053; 84484; 85025; 85610; 85730; 87428; 93005; 99285; A4216

== ENCOUNTER 2021-12-02 08:13 | Outpatient (CLI) | payer MEDICARE, SELFPAY ==
[2019-09-24 11:17] VITALS: BMI 24.3
[2021-12-02 09:43] LABS: Cholesterol 112 mg/dL (200); High Density Lipoprotein 30 mg/dL; Thyroid Stim Hormone (TSH) 3.84 uIU/mL (0.358-3.74); Triglycerides 90 mg/dL; Very Low Density Lipoprotein 18 mg/dL (5-40)
== END 2021-12-02 23:59 | disposition home or self-care (01) ==
LOC: LAB 08:14
PROVIDERS: PCP Internal Medicine; Referring Provider Internal Medicine Cardiovascular Disease; Visit Provider Internal Medicine Cardiovascular Disease
DX: I11.0 Hypertensive heart disease with heart failure (principal); I50.9 Heart failure, unspecified; I42.0 Dilated cardiomyopathy; I48.0 Paroxysmal atrial fibrillation; I36.1 Nonrheumatic tricuspid (valve) insufficiency; I34.0 Nonrheumatic mitral (valve) insufficiency; E78.5 Hyperlipidemia, unspecified
CPT/HCPCS: 36415; 80061; 84443

== ENCOUNTER 2021-12-06 10:20 | Outpatient (CLI) | payer MEDICARE, SELFPAY ==
[2019-09-24 11:17] VITALS: BMI 24.3
--- NOTE | 2021-12-06 10:23 | ECHOCS_ITS ---
Reason For Study: CHF Procedure This was a 2D Doppler, Color Flow transthoracic echocardiogram. The study was technically difficult. Contrast injection was performed. Exam performed in department. Left Ventricle Normal LV size. Left ventricular systolic function is normal. The estimated ejection fraction is 55 %. Diastolic function is indeterminate. No regional wall motion abnormalities noted. Right Ventricle Normal RV size. Normal systolic function. Atria Normal left atrium. Normal right atrium. No doppler evidence for ASD. Mitral Valve There is no mitral annular calcification. Mild focal mitral valve calcification of the posterior leaflet. Mild-Moderate (1-2+) eccentric mitral valve insufficiency. Tricuspid Valve Normal tricuspid valve. Trivial tricuspid valve insufficiency. Unable to estimate RV systolic pressure/pulmonary artery pressure due to technically difficult study. Aortic Valve Trisinus/trileaflet aortic valve. Mild focal aortic valve calcification. Pulmonic Valve The pulmonic valve is not well visualized. Great Vessels The aortic root is not well visualized. Pericardium/Pleural No pericardial effusion. Medication 22 gauge I.V. with prn adaptor inserted into right arm. Diluted definity 2ml given slow IV push to enhance endocardial definition. MMode/2D Measurements & Calculations LVIDd: 5.5 cm IVSd: 1.5 cm LA dimension: 3.6 cm LVIDs: 4.2 cm LVPWd: 0.93 cm FS: 22.6 % LAV(MOD-bp): 50.3 ml LA A4 area: 17.4 cm2 RA A4 area: 10.4 cm2 LAV(MOD-bp) Indexed: 24.1 ml/m2 LAV(MOD-sp2): 47.2 ml LAV(MOD-sp4): 47.9 ml Time Measurements MV dec time: 0.52 sec Doppler Measurements & Calculations MV E max sha: 41.8 cm/sec Lat Peak E' Sha: 6.5 cm/sec Med Peak E' Sha: 5.6 cm/sec MV A max sha: 94.1 cm/sec E/E' lat: 6.5 E/E' med: 7.4 MV E/A: 0.44 MV V2 max: 91.9 cm/sec MV P1/2t max sha: 53.1 cm/sec Ao V2 max: 133.3 cm/sec MV max P.4 mmHg MV P1/2t: 124.1 msec Ao max P.1 mmHg MV V2 mean: 50.3 cm/sec MV dec slope: 125.3 cm/sec2 MV mean P.2 mmHg MV V2 VTI: 27.4 cm MVA(P1/2t): 1.8 cm2 LV V1 max: 92.0 cm/sec MR max sha: 558.6 cm/sec PA V2 max: 125.2 cm/sec LV V1 max P.4 mmHg MR max P.8 mmHg ECHO/Echo Complete W/ Contrast Interpretation Summary The study was technically difficult. Contrast injection was performed. Left ventricular systolic function is normal. The estimated ejection fraction is 55 %. Mild focal mitral valve calcification of the posterior leaflet. Mild-Moderate (1-2+) eccentric mitral valve insufficiency. Trivial tricuspid valve insufficiency. Mild focal aortic valve calcification. Unable to estimate RV systolic pressure/pulmonary artery pressure due to techni bry difficult study. Diastolic function is indeterminate. Ordering Physician: Emmett Phan Referring Physician: Emmett Phan Performed By: Murali Garcia [facility]
== END 2021-12-06 23:59 | disposition home or self-care (01) ==
LOC: CVS 10:22
PROVIDERS: PCP Internal Medicine; Referring Provider Internal Medicine Cardiovascular Disease; Visit Provider Internal Medicine Cardiovascular Disease
DX: I51.89 Other ill-defined heart diseases (principal)
CPT/HCPCS: 93306; Q9957; A4216; C8929

== ENCOUNTER → 2022-01-02 | Outpatient (CLI) | payer MEDICARE, SELFPAY ==
[2019-09-24 11:17] VITALS: BMI 24.3
[2022-01-02 11:33] LABS: Thyroid Stim Hormone (TSH) 3.33 uIU/mL (0.358-3.74)
== END | disposition home or self-care (01) ==
LOC: LAB 10:02
PROVIDERS: PCP Internal Medicine; Referring Provider Internal Medicine Cardiovascular Disease; Visit Provider Internal Medicine Cardiovascular Disease
DX: I48.0 Paroxysmal atrial fibrillation (principal); R79.89 Other specified abnormal findings of blood chemistry
CPT/HCPCS: 36415; 84443

== ENCOUNTER → 2022-05-29 | Outpatient (CLI) | payer MEDICARE, SELFPAY ==
[2019-09-24 11:17] VITALS: BMI 24.3
[2022-05-29 09:49] LABS: AST(SGOT) 24 U/L (15-37); Alanine Aminotransfer ALT/SGPT 37 U/L (16-61); Albumin, Serum 3.6 g/dL (3.2-5.0); Alkaline Phosphatase 82 U/L (45-117); Bilirubin, Direct 0.17 mg/dL (0.00-0.30); Cholesterol 108 mg/dL (200); Globulin 3.7 g/dL (2.2-4.2); High Density Lipoprotein 30 mg/dL; Protein, Total 7.3 g/dL (6.4-8.2); Triglycerides 134 mg/dL; Very Low Density Lipoprotein 27 mg/dL (5-40)
== END | disposition home or self-care (01) ==
LOC: LAB 09:00
PROVIDERS: PCP Internal Medicine; Referring Provider Internal Medicine Cardiovascular Disease; Visit Provider Internal Medicine Cardiovascular Disease
DX: E78.5 Hyperlipidemia, unspecified (principal)
CPT/HCPCS: 36415; 80061; 80076

== ENCOUNTER → 2022-09-18 | Outpatient (CLI) | payer MEDICARE, SELFPAY ==
[2019-09-24 11:17] VITALS: BMI 24.3
[2022-09-18 11:32] LABS: AST(SGOT) 18 U/L (15-37); Alanine Aminotransfer ALT/SGPT 26 U/L (16-61); Albumin, Serum 3.7 g/dL (3.2-5.0); Alkaline Phosphatase 89 U/L (45-117); Anion Gap 6 (5-15); BUN 27 mg/dL (7-18); BUN/Creat Ratio 14.3 RATIO (10-20); Calcium,Total 9.1 mg/dL (8.5-10.1); Chloride 107 mmol/L (98-107); Cholesterol 110 mg/dL (200); Creatinine, Serum 1.89 mg/dL (0.70-1.30); EST Glomerular Filtration Rate 38 mL/min (>60); Est Glom Filt Rate - Afr Amer 45 mL/min (>60); Globulin 3.7 g/dL (2.2-4.2); Glucose 149 mg/dL (74-106); High Density Lipoprotein 27 mg/dL; PSA,Total - Annual Screen 0.62 ng/mL (0.00-4.00); Potassium 4.5 mmol/L (3.5-5.1); Protein, Total 7.4 g/dL (6.4-8.2); Sodium Level 142 mmol/L (136-145); Triglycerides 135 mg/dL; Very Low Density Lipoprotein 27 mg/dL (5-40)
[2022-09-18 11:37] LABS: Hemoglobin A1c 8.1 % (3.8-5.6)
== END | disposition home or self-care (01) ==
LOC: LAB 10:12
PROVIDERS: PCP Internal Medicine; Referring Provider Internal Medicine; Visit Provider Internal Medicine
DX: E11.9 Type 2 diabetes mellitus without complications (principal); E78.5 Hyperlipidemia, unspecified; Z12.5 Encounter for screening for malignant neoplasm of prostate
CPT/HCPCS: 36415; 80053; 80061; 83036; 84153; G0103

== ENCOUNTER → 2022-12-06 | Outpatient (CLI) | payer MEDICARE, SELFPAY ==
[2019-09-24 11:17] VITALS: BMI 24.3
--- NOTE | 2022-12-06 10:25 | RAD_ITS ---
INDICATION: Amiodarone EXAMINATION/TECHNIQUE: X-RAY - XR Chest 2 Views COMPARISON: November 16, 2021 FINDINGS: LINES/DEVICES: None. LUNGS: There is no new focal consolidation. MEDIASTINUM AND CARDIOVASCULAR STRUCTURES: Cardiac silhouette not enlarged. Central airways and mediastinal contour are unremarkable. BONES AND SOFT TISSUES: Unremarkable. RAD/Chest PA and Lateral IMPRESSION: No radiographic evidence of acute cardiopulmonary disease. Electronically Signed: Dolly Arthur MD at 11:30 EDT ,
[2022-12-06 11:48] LABS: Free T3 6.4 pg/mL (2.18-3.98); T4 Free Direct 3.81 ng/dL (0.76-1.46); Thyroid Stim Hormone (TSH) < 0.01 uIU/mL (0.358-3.74)
[2022-12-06 11:48] LABS: AST(SGOT) 19 U/L (15-37); Alanine Aminotransfer ALT/SGPT 37 U/L (16-61); Albumin, Serum 3.5 g/dL (3.2-5.0); Alkaline Phosphatase 108 U/L (45-117); Bilirubin, Direct 0.16 mg/dL (0.00-0.30); Cholesterol 102 mg/dL (200); Globulin 3.9 g/dL (2.2-4.2); High Density Lipoprotein 29 mg/dL; Protein, Total 7.4 g/dL (6.4-8.2); Triglycerides 166 mg/dL; Very Low Density Lipoprotein 33 mg/dL (5-40)
== END | disposition home or self-care (01) ==
LOC: RAD 10:20
PROVIDERS: Internal Medicine Cardiovascular Disease; PCP Internal Medicine; Referring Provider Nurse Practitioner Gerontology; Visit Provider Nurse Practitioner Gerontology
DX: I48.0 Paroxysmal atrial fibrillation (principal); E78.00 Pure hypercholesterolemia, unspecified; Z79.899 Other long term (current) drug therapy
CPT/HCPCS: 36415; 71046; 80061; 80076; 84439; 84443; 84481

== ENCOUNTER → 2022-12-24 | Outpatient (CLI) | payer MEDICARE, SELFPAY ==
[2019-09-24 11:17] VITALS: BMI 24.3
--- NOTE | 2022-12-24 09:48 | PFTCOMP_ITS ---
COMPLETE PULMONARY FUNCTION TEST INTERPRETATION Brief HPI: Patient is a 72-year-old male, currently under the care of Evon Juan, who presents to [facility] for complete pulmonary function tests secondary to diagnosis of amiodarone use. Respiratory therapist reports good effort and reproducible results. Interpretation: Forced expiration spirometry shows a mild large airways obstructive ventilatory defect with an FEV1 of 83% predicted. There is a significant bronchodilator response in FEV1 by strict ATS criteria. Spirograms are of good quality and plateau slowly, indicating slowly emptying areas of the lungs. The respiratory flow volume loop shows decreased expiratory flow rates at high lung volumes consistent with small airways obstruction. Lung volumes by body plethysmography show a slightly decreased total lung capacity at 5.33 L, 79% predicted. All other lung volumes are reduced symmetrically. Diffusion capacity by carbon monoxide is normalized at 94% predicted. The airway resistance is slightly elevated. Compared to previous pulmonary function tests from 03/16/2021, there is been a significant improvement in DLCO by 44%. Impression: Partial reversible mild mixed ventilatory defect with significant improvement in air trapping and DLCO compared to previous
== END | disposition home or self-care (01) ==
LOC: PSN 06:37
PROVIDERS: PCP Internal Medicine; Referring Provider Nurse Practitioner Gerontology; Visit Provider Nurse Practitioner Gerontology
DX: Z79.899 Other long term (current) drug therapy (principal)
CPT/HCPCS: 94060; 94726; 94729

== ENCOUNTER → 2022-12-26 | Outpatient (CLI) | payer MEDICARE, SELFPAY ==
[2019-09-24 11:17] VITALS: BMI 24.3
--- NOTE | 2022-12-26 07:32 | US_ITS ---
STUDY: THYROID ULTRASOUND REASON FOR EXAM: Male, 72 years old. ABN THYROID LABS/EXAM TECHNIQUE: Ultrasound evaluation of the thyroid was performed with real-time and static tesfaye-scale imaging. COMPARISON: None. FINDINGS: RIGHT LOBE: The right lobe of the thyroid gland measures 3.2 cm x 2.1 sided by 2.5 cm. There is a heterogeneous echotexture. There is a 4 mm x 4 mm x 3 mm solid and cystic nodule in the lower pole. LEFT LOBE: The left lobe of the thyroid gland measures 4.3 cm x 1.4 cm x 1.8 cm. There is a heterogeneous echotexture. There are no demonstrated solid, cystic or complex lesions. ISTHMUS: The isthmus measures 5 mm. Small bilateral benign-appearing cervical lymph nodes. US/Thyroid IMPRESSION: Heterogeneous echotexture of both lobes of the thyroid gland. There is a 4 mm x 4 mm x 3 mm solid/cystic nodule in the lower pole of the right lobe of the thyroid Electronically Signed: Levy Dasilva MD at 8:39 EDT ,
== END | disposition home or self-care (01) ==
LOC: US 07:31
PROVIDERS: PCP Internal Medicine; Referring Provider Internal Medicine; Visit Provider Internal Medicine
DX: R94.6 Abnormal results of thyroid function studies (principal)
CPT/HCPCS: 76536

== ENCOUNTER → 2023-04-03 | Outpatient (CLI) | payer MEDICARE, SELFPAY ==
[2019-09-24 11:17] VITALS: BMI 24.3
[2023-04-03 11:00] LABS: Free T3 2.1 pg/mL (2.18-3.98); Thyroid Stim Hormone (TSH) 7.15 uIU/mL (0.358-3.74)
[2023-04-03 11:02] LABS: Hemoglobin A1c 8.3 % (3.8-5.6)
[2023-04-12 22:06] LABS: Anti-Thyroglobulin AB 117.5 IU/mL (0.0-0.9); Thyroglobulin RIA 9.4 ng/mL (.); Thyroid Peroxidase AB < 9 IU/mL (0-34)
== END | disposition home or self-care (01) ==
PROVIDERS: PCP Internal Medicine; Referring Provider Internal Medicine; Visit Provider Internal Medicine
DX: E11.9 Type 2 diabetes mellitus without complications (principal); R94.6 Abnormal results of thyroid function studies
CPT/HCPCS: 36415; 83036; 84432; 84439; 84443; 84481; 86376; 86800

== ENCOUNTER → 2023-06-12 | Outpatient (CLI) | payer MEDICARE, SELFPAY ==
[2019-09-24 11:17] VITALS: BMI 24.3
[2023-06-12 11:47] LABS: AST(SGOT) 11 U/L (15-37); Alanine Aminotransfer ALT/SGPT 23 U/L (16-61); Albumin, Serum 3.6 g/dL (3.2-5.0); Alkaline Phosphatase 96 U/L (45-117); Bilirubin, Direct 0.12 mg/dL (0.00-0.30); Cholesterol 119 mg/dL (200); Free T3 2.3 pg/mL (2.18-3.98); Globulin 3.8 g/dL (2.2-4.2); High Density Lipoprotein 30 mg/dL; Protein, Total 7.4 g/dL (6.4-8.2); T4 Free Direct 1.13 ng/dL (0.76-1.46); Thyroid Stim Hormone (TSH) 8.49 uIU/mL (0.358-3.74); Triglycerides 124 mg/dL; Very Low Density Lipoprotein 25 mg/dL (5-40)
== END | disposition home or self-care (01) ==
LOC: LAB 10:03
PROVIDERS: PCP Internal Medicine; Referring Provider Nurse Practitioner Gerontology; Visit Provider Nurse Practitioner Gerontology
DX: E78.00 Pure hypercholesterolemia, unspecified (principal); R79.89 Other specified abnormal findings of blood chemistry; Z79.899 Other long term (current) drug therapy
CPT/HCPCS: 36415; 80061; 80076; 84439; 84443; 84481

== ENCOUNTER → 2023-10-11 | Outpatient (CLI) | payer MEDICARE, SELFPAY ==
[2019-09-24 11:17] VITALS: BMI 24.3
[2023-10-11 10:03] LABS: Hemoglobin A1c 7.1 % (3.8-5.6)
[2023-10-11 10:05] LABS: T4 Free Direct 1.53 ng/dL (0.76-1.46); Thyroid Stim Hormone (TSH) 2.02 uIU/mL (0.358-3.74)
== END | disposition home or self-care (01) ==
PROVIDERS: PCP Internal Medicine; Visit Provider Internal Medicine
DX: E03.9 Hypothyroidism, unspecified (principal); E11.9 Type 2 diabetes mellitus without complications
CPT/HCPCS: 36415; 83036; 84439; 84443

== ENCOUNTER 2024-01-02 07:21 | Outpatient (CLI) | payer MEDICARE, SELFPAY ==
[2019-09-24 11:17] VITALS: BMI 24.3
--- NOTE | 2024-01-02 07:23 | RDU_ITS ---
Reason For Study: HTN Right Renal Artery Left Renal Artery Right renal artery ostium Left renal artery ostium 74.9/12.7 100.8/17.9 RSV/EDV. PSV/EDV. Right renal artery proximal Left renal artery proximal PSV/EDV 95.6/20.5 PSV/EDV. 74.9/15.3 . Right renal artery mid 63.9/27.3 Left renal artery mid 52.7/9.7 PSV/EDV. PSV/EDV . Right renal artery distal 48.7/10.7 Left renal artery distal 67.4/14.6 PSV/EDV. PSV/EDV. Right RAR 1.09. Left RAR 0.81. Right Renal Parenchyma Left Renal Parenchyma Upper Pole Medula 25.1/7.9 PSV/EDV. Left upper pole medulla 28.8/7.9 Right upper pole medulla EDR 0.30 . PSV/EDV . Right upper pole medulla R.I. Left upper pole medulla EDR 0.30 . 0.68 . Left upper pole medulla R.I. 0.72 . Upper Jose Cortx 14.1/4.2 PSV/EDV. UP Cortex 16.5/5.5 PSV/EDV. Right upper pole cortex EDR 0.30 . Left upper pole cortex EDR 0.30 . Right upper pole cortex R.I. 0.70 . Left upper pole cortex R.I. 0.67 . Right lower Pole medulla 18.4/6.1 Left lower Pole medulla 22.0/5.5 PSV/EDV . PSV/EDV . Right lower pole medulla EDR 0.30 . Left lower pole medulla EDR 0.20 . Right lower pole medulla R.I. Left lower pole medulla R.I. 0.75 . 0.67 . Lower Pole Cortx 15.3/4.2 PSV/EDV. Lower Pole Cortex 14.7/5.5 PSV/EDV. Left lower pole cortex EDR 0.33 . Right lower pole cortex EDR 0.40 . Left lower pole cortex R.I. 0.72 . Right lower pole cortex R.I. 0.63 . Left Renal Hilar Right Renal Hilar LT Hilar avg 60.1/18.3 PSV/EDV . Right Hilar avg 80.9/14.6 PSV/EDV. Left hilar acceleration time 50 Right hilar acceleration time 50 m/sec. m/sec. Left Renal Dimensions Right Renal Dimensions Left kidney size 8.65 cm . Right kidney size 9.65 cm . Left cortical dimension 1.43 cm . Right cortical dimension 1.30 cm . Aorta Proximal abdominal aorta 1.76 x 1.86 cm . Distal abdominal aorta 1.23 x 1.50 cm . Proximal abdominal aorta peak systolic velocity is 92.9 cm/sec . Distal abdominal aorta peak systolic velocity is 82.7 cm/sec . VL/Renal Artery Duplex Ultrasound Interpretation Summary Right renal artery patent with normal velocities and no evidence of stenosis. Left renal artery patent with normal velocities and no evidence of stenosis. Right renal vein patent. Left renal vein patent. Right kidney normal in size. Left kidney diminshed in size. Ordering Physician: Los Preston Referring Physician: Danna Alcantar Performed By: Bentley Serrano RVT
== END 2024-01-02 23:59 | disposition home or self-care (01) ==
LOC: CVS 07:22
PROVIDERS: PCP Internal Medicine; Referring Provider Internal Medicine Cardiovascular Disease; Visit Provider Internal Medicine Cardiovascular Disease
DX: I11.0 Hypertensive heart disease with heart failure (principal); I50.9 Heart failure, unspecified; I48.0 Paroxysmal atrial fibrillation; I36.1 Nonrheumatic tricuspid (valve) insufficiency; I34.0 Nonrheumatic mitral (valve) insufficiency; E78.5 Hyperlipidemia, unspecified
CPT/HCPCS: 93975

== ENCOUNTER → 2024-01-02 | Outpatient (CLI) | payer MEDICARE, SELFPAY ==
[2019-09-24 11:17] VITALS: BMI 24.3
[2024-01-02 07:52] LABS: Hematocrit 43.1 % (40-54); Hemoglobin 13.8 g/dL (13.0-16.5); Mean Corpuscular Volume 87.4 fL (80-94); Mean Platelet Vol. 9.9 fl (6.2-12.0); Platelet Count 249 K/mm3 (150-450); RBC Distribution Width CV 14.1 % (11.6-14.6); Red Blood Count 4.93 M/mm3 (4.6-6.2); White Blood Count 7.3 K/mm3 (4.4-11.0)
[2024-01-02 08:39] LABS: ALB/GLOB Ratio 1.1 RATIO (0.9-2.4); AST(SGOT) 12 U/L (15-37); Alanine Aminotransfer ALT/SGPT 28 U/L (16-61); Alkaline Phosphatase 98 U/L (45-117); Anion Gap 5 (5-15); BUN 29 mg/dL (7-18); BUN/Creat Ratio 14.9 RATIO (10-20); Chloride 110 mmol/L (98-107); Creatinine, Serum 1.95 mg/dL (0.70-1.30); EST Glomerular Filtration Rate 36 mL/min (>60); Est Glom Filt Rate - Afr Amer 44 mL/min (>60); Globulin 3.7 g/dL (2.2-4.2); Glucose 137 mg/dL (74-106); Potassium 3.9 mmol/L (3.5-5.1); Protein, Total 7.7 g/dL (6.4-8.2); Sodium Level 142 mmol/L (136-145); Thyroid Stim Hormone (TSH) 3.78 uIU/mL (0.358-3.74)
== END | disposition home or self-care (01) ==
LOC: LAB 07:13
PROVIDERS: PCP Internal Medicine; Referring Provider Internal Medicine Cardiovascular Disease; Visit Provider Internal Medicine Cardiovascular Disease
DX: I48.0 Paroxysmal atrial fibrillation (principal); R79.89 Other specified abnormal findings of blood chemistry; I51.89 Other ill-defined heart diseases; I10 Essential (primary) hypertension; E78.5 Hyperlipidemia, unspecified
CPT/HCPCS: 36415; 80053; 84443; 85027

== ENCOUNTER → 2024-01-24 | Outpatient (CLI) | payer MEDICARE, SELFPAY ==
[2019-09-24 11:17] VITALS: BMI 24.3
--- NOTE | 2024-01-24 12:29 | ECHOCS_ITS ---
Reason For Study: Dilated Cardiomyopathy Procedure This was a 2D Doppler, Color Flow transthoracic echocardiogram. The study was technically difficult. Contrast injection was performed. Exam performed in department. Left Ventricle Mild concentric left ventricular hypertrophy. Mildly dilated left ventricle. Stage 1 diastolic dysfunction. LVEF estimated at 45 to 50%. Right Ventricle Normal right ventricle. Atria The left and right atria are normal. Mitral Valve Trivial mitral valve insufficiency. Tricuspid Valve Normal tricuspid valve. Aortic Valve There is no aortic stenosis. No aortic valve insufficiency. Pulmonic Valve The pulmonic valve is not well visualized. Great Vessels Mildly dilated aortic root. Pericardium/Pleural Trivial pericardial effusion. Medication 22 gauge I.V. with prn adaptor inserted into left arm. Diluted definity 2.5ml given slow IV push to enhance endocardial definition. MMode/2D Measurements & Calculations LVIDd: 5.4 cm IVSd: 1.2 cm Ao root diam: 3.6 cm LVIDs: 4.4 cm LVPWd: 0.99 cm LA dimension: 4.2 cm RVDd: 3.3 cm FS: 19.0 % LAV(MOD-bp): 47.9 ml LVAd ap4: 35.1 cm2 LVAd ap2: 28.2 cm2 LAV(MOD-bp) Indexed: 22.7 ml/m2 LVLd ap4: 7.4 cm LVLd ap2: 7.2 cm LAV(MOD-sp2): 40.7 ml EDV(MOD-sp4): 132.1 ml EDV(MOD-sp2): 88.4 ml LAV(MOD-sp4): 38.9 ml EDV(sp4-el): 141.8 ml EDV(sp2-el): 94.5 ml LVAs ap4: 23.6 cm2 LVAs ap2: 19.7 cm2 LVLs ap4: 6.3 cm LVLs ap2: 5.8 cm ESV(MOD-sp4): 72.1 ml ESV(MOD-sp2): 53.8 ml ESV(sp4-el): 75.0 ml ESV(sp2-el): 56.4 ml EF(MOD-sp4): 45.4 % EF(MOD-sp2): 39.1 % EF(sp4-el): 47.2 % SV(MOD-sp4): 60.0 ml SV(MOD-sp2): 34.6 ml SV(sp4-el): 66.9 ml LA A4 area: 15.6 cm2 TAPSE: 1.3 cm Time Measurements MV dec time: 0.32 sec Doppler Measurements & Calculations MV E max sha: 45.3 cm/sec Lat Peak E' Sha: 9.8 cm/sec Med Peak E' Sha: 6.3 cm/sec MV A max sha: 97.3 cm/sec E/E' lat: 4.6 E/E' med: 7.2 MV E/A: 0.47 MV V2 max: 103.0 cm/sec MV P1/2t max sha: 52.0 cm/sec Ao V2 max: 131.4 cm/sec MV max P.2 mmHg MV P1/2t: 112.0 msec Ao max P.9 mmHg MV V2 mean: 51.7 cm/sec Ao V2 mean: 89.6 cm/sec MV mean P.3 mmHg MV dec slope: 136.1 cm/sec2 Ao mean P.7 mmHg MV V2 VTI: 25.1 cm MVA(P1/2t): 2.0 cm2 Ao V2 VTI: 27.0 cm AV (velocity ratio): 0.55 LV V1 max: 67.2 cm/sec PA V2 max: 126.9 cm/sec LV V1 max P.8 mmHg PA max PG (full): 4.2 mmHg LV V1 mean P.1 mmHg LV V1 mean: 48.9 cm/sec LV V1 VTI: 14.8 cm ECHO/Echo Complete W/ Contrast Interpretation Summary Mild concentric left ventricular hypertrophy. Mildly dilated left ventricle. Stage 1 diastolic dysfunction. LVEF estimated at 45 to 50%. Mildly dilated aortic root. Ordering Physician: Los Preston Referring Physician: Los Preston Performed By: Murali Garcia RCS
== END | disposition home or self-care (01) ==
LOC: CVS 12:29
PROVIDERS: PCP Internal Medicine; Referring Provider Internal Medicine Cardiovascular Disease; Visit Provider Internal Medicine Cardiovascular Disease
DX: I42.0 Dilated cardiomyopathy (principal)
CPT/HCPCS: 93306; Q9957; A4216; C8929

== ENCOUNTER → 2024-02-21 | Outpatient (CLI) | payer MEDICARE, SELFPAY ==
[2019-09-24 11:17] VITALS: BMI 24.3
[2024-02-21 10:27] LABS: Free T3 2.2 pg/mL (2.18-3.98); T4 Free Direct 1.58 ng/dL (0.76-1.46); Thyroid Stim Hormone (TSH) 3.82 uIU/mL (0.358-3.74)
[2024-03-02 02:07] LABS: Anti-Thyroglobulin AB 6.8 IU/mL (0.0-0.9); Thyroglobulin RIA 2.4 ng/mL (.); Thyroid Peroxidase AB 11 IU/mL (0-34)
== END | disposition home or self-care (01) ==
LOC: PSN 08:43
PROVIDERS: PCP Internal Medicine; Referring Provider Internal Medicine Cardiovascular Disease; Visit Provider Internal Medicine Cardiovascular Disease
DX: I48.0 Paroxysmal atrial fibrillation (principal); R79.89 Other specified abnormal findings of blood chemistry; Z79.899 Other long term (current) drug therapy
CPT/HCPCS: 36415; 84432; 84439; 84443; 84481; 86376; 86800; 94060; 94726; 94729

== ENCOUNTER → 2024-09-11 | Outpatient (CLI) | payer MEDICARE, SELFPAY ==
[2019-09-24 11:17] VITALS: BMI 24.3
[2024-09-11 10:12] LABS: ALB/GLOB Ratio 0.9 RATIO (0.9-2.4); AST(SGOT) 10 U/L (15-37); Alanine Aminotransfer ALT/SGPT 18 U/L (16-61); Albumin, Serum 3.6 g/dL (3.2-5.0); Alkaline Phosphatase 76 U/L (45-117); Anion Gap 6 (5-15); BUN 42 mg/dL (7-18); BUN/Creat Ratio 16.2 RATIO (10-20); Calcium,Total 9.1 mg/dL (8.5-10.1); Chloride 109 mmol/L (98-107); Creatinine, Serum 2.59 mg/dL (0.70-1.30); EST Glomerular Filtration Rate 26 mL/min (>60); Est Glom Filt Rate - Afr Amer 31 mL/min (>60); Globulin 3.9 g/dL (2.2-4.2); Glucose 159 mg/dL (74-106); Potassium 4.1 mmol/L (3.5-5.1); Protein, Total 7.5 g/dL (6.4-8.2); Sodium Level 139 mmol/L (136-145); Thyroid Stim Hormone (TSH) 0.585 uIU/mL (0.358-3.740)
== END | disposition home or self-care (01) ==
LOC: LAB 08:54
PROVIDERS: PCP Internal Medicine; Referring Provider Internal Medicine Cardiovascular Disease; Visit Provider Internal Medicine Cardiovascular Disease
DX: E11.22 Type 2 diabetes mellitus with diabetic chronic kidney disease (principal); I50.9 Heart failure, unspecified; N18.9 Chronic kidney disease, unspecified; R79.89 Other specified abnormal findings of blood chemistry
CPT/HCPCS: 36415; 80053; 84443

== ENCOUNTER → 2024-09-17 | Outpatient (CLI) | payer MEDICARE, SELFPAY ==
[2019-09-24 11:17] VITALS: BMI 24.3
== END | disposition home or self-care (01) ==
LOC: PSN 09:22
PROVIDERS: PCP Internal Medicine; Referring Provider Physician Assistant Medical; Visit Provider Physician Assistant Medical
DX: R94.2 Abnormal results of pulmonary function studies (principal); R79.89 Other specified abnormal findings of blood chemistry; Z79.899 Other long term (current) drug therapy
CPT/HCPCS: 94060; 94726; 94729

== ENCOUNTER → 2024-10-05 | Outpatient (CLI) | payer MEDICARE, SELFPAY ==
[2019-09-24 11:17] VITALS: BMI 24.3
[2024-10-05 12:46] LABS: Absolute Lymphocyte Count 1.24 X10^3/uL (0.83-4.51); Basophil# 0.03 X10^3/uL; Basophil% 0.4 % (0-1); Eosinophil# 0.32 X10^3/uL; Eosinophils% 4.4 % (0-5); Hematocrit 41.4 % (40-54); Hemoglobin 12.9 g/dL (13.0-16.5); Lymphocyte # 1.24 X10^3/ul (0.83-4.51); Lymphocyte % 17.1 % (19-41); Mean Corp Hgb Conc 31.2 g/dL (32-36); Mean Corpuscular Hgb 26.8 pg (27.0-32.0); Mean Corpuscular Volume 85.9 fL (80-94); Mean Platelet Vol. 10.1 fl (6.2-12.0); Monocyte# 0.66 X10^3/uL; Monocyte% 9.1 % (0-10); NRBC Flagged by Analyzer 0 % (0-5); Neutrophil # 4.97 X10^3/uL (2.7-7.7); Neutrophil % 68.4 % (47-70); Platelet Count 263 K/mm3 (150-450); RBC Distribution Width CV 14.2 % (11.6-14.6); RBC Distribution Width SD 44.7 fl (35.1-43.9); Red Blood Count 4.82 M/mm3 (4.6-6.2); White Blood Count 7.3 K/mm3 (4.4-11.0)
[2024-10-05 12:53] LABS: Protein, Urine (Random) 21.1 mg/dL (<11.9); Protein:Creat Ratio 500 mg/g CRE (0-200)
[2024-10-05 13:12] LABS: Anion Gap 8 (5-15); BUN 35 mg/dL (7-18); BUN/Creat Ratio 13.9 RATIO (10-20); Calcium,Total 9.2 mg/dL (8.5-10.1); Chloride 109 mmol/L (98-107); Creatinine, Serum 2.51 mg/dL (0.70-1.30); EST Glomerular Filtration Rate 27 mL/min (>60); Est Glom Filt Rate - Afr Amer 33 mL/min (>60); Glucose 187 mg/dL (74-106); Potassium 4.2 mmol/L (3.5-5.1); Sodium Level 142 mmol/L (136-145)
[2024-10-05 13:14] LABS: Albumin, Serum 3.5 g/dL (3.2-5.0); BUN 34 mg/dL (7-18); BUN/Creat Ratio 13.7 RATIO (10-20); Calcium,Total 8.9 mg/dL (8.5-10.1); Chloride 108 mmol/L (98-107); Creatinine, Serum 2.49 mg/dL (0.70-1.30); EST Glomerular Filtration Rate 27 mL/min (>60); Est Glom Filt Rate - Afr Amer 33 mL/min (>60); Glucose 187 mg/dL (74-106); Phosphorus 3.3 mg/dL (2.5-4.9); Potassium 4.1 mmol/L (3.5-5.1); Sodium Level 141 mmol/L (136-145)
[2024-10-05 13:16] LABS: Color, Urine Yellow (Yellow); Glucose, Dipstick 1000 mg/dl (Normal); Ketone-Dipstick Negative (Negative); Leukocyte Esterase-Dipstick Negative /ul (Negative); Nitrite-Dipstick Negative (Negative); Occult Blood-Urine Negative /ul (Negative); Protein-Dipstick Negative (Negative); Specific Gravity, Urine 1.015 (1.002-1.030); Urine Bilirubin Dipstick Negative (Negative); Urine Clarity Clear (Clear); Urine Urobilinogen Normal (Normal)
== END | disposition home or self-care (01) ==
PROVIDERS: PCP Internal Medicine; Referring Provider Internal Medicine Nephrology; Visit Provider Nurse Practitioner Family
DX: N18.32 Chronic kidney disease, stage 3b (principal)
CPT/HCPCS: 36415; 80048; 80069; 81002; 82570; 84156; 85025

== ENCOUNTER → 2024-12-21 | Outpatient (CLI) | payer MEDICARE, SELFPAY ==
[2019-09-24 11:17] VITALS: BMI 24.3
[2024-12-21 16:19] LABS: Absolute Lymphocyte Count 1.37 X10^3/uL (0.83-4.51); Absolute Neutrophil Count 5.8 X10^3/uL (2.0-7.7); Basophil# 0.05 X10^3/uL; Basophil% 0.6 % (0-1); Eosinophil# 0.32 X10^3/uL; Eosinophils% 3.9 % (0-5); Hematocrit 41.6 % (40-54); Hemoglobin 13.2 g/dL (13.0-16.5); Lymphocyte # 1.37 X10^3/ul (0.83-4.51); Lymphocyte % 16.5 % (19-41); Mean Corp Hgb Conc 31.7 g/dL (32-36); Mean Corpuscular Volume 85.2 fL (80-94); Mean Platelet Vol. 10.3 fl (6.2-12.0); Monocyte# 0.76 X10^3/uL; Monocyte% 9.1 % (0-10); NRBC Flagged by Analyzer 0 % (0-5); Neutrophil # 5.76 X10^3/uL (2.7-7.7); Neutrophil % 69.3 % (47-70); Platelet Count 291 K/mm3 (150-450); RBC Distribution Width CV 14.5 % (11.6-14.6); RBC Distribution Width SD 44.5 fl (35.1-43.9); Red Blood Count 4.88 M/mm3 (4.6-6.2); White Blood Count 8.3 K/mm3 (4.4-11.0)
[2024-12-21 16:48] LABS: Anion Gap 13 (5-15); BUN 26 mg/dL (4-19); BUN/Creat Ratio 11.9 RATIO (10-20); Calcium,Total 9.4 mg/dL (7.6-11.0); Carbon Dioxide 21.4 mmol/L (21.0-32.0); Chloride 104 mmol/L (98-108); EST Glomerular Filtration Rate 31 (>60); Glucose 149 mg/dL (70-99); Sodium Level 139 mmol/L (133-145); Thyroid Stim Hormone (TSH) 0.522 uIU/mL (0.300-4.200)
== END | disposition home or self-care (01) ==
LOC: BIMLAB 14:49
PROVIDERS: PCP Internal Medicine; Referring Provider Internal Medicine; Visit Provider Internal Medicine
DX: E03.9 Hypothyroidism, unspecified (principal); I10 Essential (primary) hypertension
CPT/HCPCS: 36415; 80048; 84443; 85025

== ENCOUNTER → 2025-02-24 | Outpatient (CLI) | payer MEDICARE, SELFPAY ==
[2019-09-24 11:17] VITALS: BMI 24.3
[2025-02-24 13:30] LABS: Anion Gap 14 (5-15); BUN 33 mg/dL (4-19); BUN/Creat Ratio 14.3 RATIO (10-20); Calcium,Total 9.4 mg/dL (7.6-11.0); Carbon Dioxide 21.9 mmol/L (21.0-32.0); Chloride 107 mmol/L (98-108); Glucose 175 mg/dL (70-99); Potassium 5.0 mmol/L (3.3-5.1)
== END | disposition home or self-care (01) ==
LOC: BIMLAB 09:47
PROVIDERS: PCP Internal Medicine; Referring Provider Internal Medicine; Visit Provider Internal Medicine
DX: N18.9 Chronic kidney disease, unspecified (principal)
CPT/HCPCS: 36415; 80048

== ENCOUNTER → 2025-06-16 | Outpatient (CLI) | payer MEDICARE, SELFPAY ==
[2019-09-24 11:17] VITALS: BMI 24.3
--- NOTE | 2025-06-16 07:32 | ECHOCS_ITS ---
Reason For Study ECHO/Echo Complete W/ Contrast
== END | disposition home or self-care (01) ==
LOC: CVS 07:29
PROVIDERS: PCP Internal Medicine; Referring Provider Internal Medicine Cardiovascular Disease; Visit Provider Internal Medicine Cardiovascular Disease
DX: R94.31 Abnormal electrocardiogram [ECG] [EKG] (principal); I48.0 Paroxysmal atrial fibrillation
CPT/HCPCS: 93306; Q9957; A4216; C8929